=== PATIENT | female | born 1945 | race Caucasian/White ===

== ENCOUNTER 2022-05-14 15:52 | Outpatient (CLI) | payer MEDICARE, SELFPAY | END 2022-05-14 15:53 | disposition home or self-care (01) | LOC: LKVREF 05-16 12:05 | PROVIDERS: PCP Family Medicine; Visit Provider Emergency Medicine | DX: N39.0 Urinary tract infection, site not specified (principal); R30.0 Dysuria | CPT/HCPCS: 87086 ==

== ENCOUNTER 2022-05-22 10:05 | Outpatient (CLI) | payer BC, SELFPAY | END 2022-05-22 10:06 | disposition home or self-care (01) | LOC: LKVREF 10:06 | PROVIDERS: PCP Family Medicine; Visit Provider Emergency Medicine | DX: N39.0 Urinary tract infection, site not specified (principal) | CPT/HCPCS: 87086 ==

== ENCOUNTER 2022-07-02 06:23 | Emergency (ER) | payer MEDICARE, SELFPAY ==
[2022-07-02 06:27] VITALS: BP 156/97; PULSE 69; RESP 16; TEMP 36.3; O2SAT 99; BMI 34.8
--- NOTE | 2022-07-02 06:59 | CRLHL7_ITS ---
For Patients: As a result of the Century Cures Act, medical imaging exams and procedure reports are released immediately into your electronic medical record. You may view this report before your referring provider. If you have questions, please contact your health care provider. INDICATION: Fall, hit head. COMPARISON: CT head 01/03/2018. TECHNIQUE: CT of the head without IV contrast. Coronal and sagittal reconstructions. FINDINGS: No intracranial hemorrhage, mass effect, or evidence of acute infarct. No midline shift. No abnormal extra-axial fluid collections. Mild generalized cerebral and cerebellar volume loss. Normal caliber ventricular system. Stable old lacunar infarcts in the high right frontoparietal white matter. There is a stable tiny soft tissue nodule in the lateral aspect of the left orbit which is likely benign given stability (series 3, image 6). Orbits and extraocular muscles are otherwise symmetric. The paranasal sinuses and mastoid air cells are clear. No acute fracture identified. Mild left periorbital soft tissue swelling. Multiple stable small scalp lesions. IMPRESSION: : 1. No acute intracranial findings. 2. Mild left periorbital soft tissue swelling. Please note that all CT scans at this facility use dose modulation, iterative reconstruction, and/or weight-based dosing when appropriate to reduce radiation dose to as low as reasonably achievable. Dictated by Beatriz Canela MD @ 07/02/2022 8:04:22 AM (Electronically Signed)
--- NOTE | 2022-07-02 07:06 | ED_ITS ---
HPI - General Adult General Date Seen: 07/02/22 Chief complaint: Fall/Minor Trauma Stated complaint: Fall/hit head Time Seen by Provider: 07/02/22 06:39 Source: patient and family Mode of arrival: ambulatory Limitations: no limitations History of Present Illness HPI narrative: Patient is a 77-year-old female who was at the [place] airport with her planning to take a flight to [facility]. When she got out of the car she caught her toe on a crack in the sidewalk and fell forward hitting her for head on the pavement. Her glasses broke. There was a cut to her forehead that was controlled with ice and pressure. She had an immediate headache and they decided to leave the airport and drive to the emergency department. She did not lose consciousness. She has some chronic neck pain that is no worse since falling. She also landed on her right knee which is now little sore. She was ambulatory on the scene and in our parking lot. She denies other injury. She denies chest pains or shortness of breath. She denies any neurologic difficulty. She has not been sleepy. She has not vomited. Related Data Home Medications Medication Instructions Recorded Confirmed albuterol sulfate 90 mcg/actuation 2 puff inhalation Q4-6H PRN 05/14/22 07/02/22 aerosol inhaler (ProAir HFA) alprazolam 1 mg tablet 1 mg PO TID PRN 05/14/22 07/02/22 fluoxetine 20 mg capsule 20 mg PO QDAY 05/14/22 07/02/22 multivitamin 1 tab PO QDAY 05/14/22 07/02/22 omeprazole 20 mg capsule,delayed 20 mg PO QDAY 05/14/22 07/02/22 release triamterene 37.5 1 tab PO QDAY 05/14/22 07/02/22 mg-hydrochlorothiazide 25 mg tablet Previous Rx's Medication Instructions Recorded cephalexin 500 mg capsule 500 mg PO BID cellulitis #14 caps 06/21/22 hydrocodone 5 mg-acetaminophen 325 1 tab PO Q6H PRN pain #10 tabs 07/02/22 mg tablet Allergies Allergy/AdvReac Type Severity Reaction Status Date / Time shellfish derived Allergy Severe Anaphylaxis Verified 07/02/22 06:30 Sulfa (Sulfonamide Allergy Intermediate Rash Verified 07/02/22 06:30 Antibiotics) oxycodone AdvReac Severe Nightmare Verified 07/02/22 06:30 Review of Systems Status of ROS: Reports: 10 or more systems reviewed and unremarkable except as noted in History and below [facility] Medical History (Updated 07/02/22 @ 07:26 by Ramon Vee MD) Urinary tract infection Social History Smoking Status: Never smoker How often do you have a drink containing alcohol: 4 or more times a week How many standard drinks containing alcohol do you have on a typical day: 1 or 2 AUDIT-C Alcohol total score: 4 Non-prescribed substance use: denies use Exam Narrative: Exam Narrative: Vitals noted. HEENT: She has some swelling and bruising above her left eye. No bony step- off. There is a small laceration that is bleeding mildly. This is closed with Dermabond. Conjunctiva clear. PERRLA. EOMI. Tympanic membranes are pearly white bilaterally. No postauricular ecchymosis or hemotympanum. Posterior pharynx is clear without erythema or exudate. Neck is supple without adenopathy, thyromegaly, carotid bruit. She has some chronic crepitus with range of motion that is unchanged. Lungs: Clear to auscultation in all leal. No wheezes, rales, rhonchi. Heart: Regular rate and rhythm without murmur. Abdomen: Soft and nontender. No guarding, rigidity, rebound. Bowel sounds are normal. No palpable masses. Extremities: No cyanosis or edema. Good distal pulses. She has a bruised area of the proximal medial right lower leg. 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 Skin: No abnormalities noted of the exposed skin. Neurologic: Awake, alert, fully oriented. Neurologic exam is nonfocal. Const: Vital Signs, click to edit/add: Vital Signs - 24 hr 07/02/22 06:27 07/02/22 07:38 Temperature 97.3 F L Pulse Rate [Left P ulse Oximeter] 69 66 Respiratory Rate 16 18 Blood Pressure [Ri ght Upper Arm] 156/97 H 124/78 Pulse Oximetry 99 96 Oxygen Delivery Me thod Room Air Room Air Course Course Hospital Course: Patient seen and examined. I used Dermabond to close the small laceration of her left eyebrow and forehead. She tolerated this well and was hemostatic. She underwent a CT of her head without contrast which was unremarkable. She felt well other a headache and was comfortable with discharge. Vital Signs Vital signs: Initial Vital Signs Temperature 97.3 F L 07/02/22 06:27 Temperature Source Temporal Artery Scan 07/02/22 06:27 Pulse Rate 69 07/02/22 06:27 Respiratory Rate 16 07/02/22 06:27 Blood Pressure 156/97 H 07/02/22 06:27 Blood Pressure Mean 116 07/02/22 06:27 Blood Pressure Position Sitting 07/02/22 06:27 Pulse Oximetry 99 07/02/22 06:27 Oxygen Delivery Method 07/02/22 06:27 Vital Signs Temperature 97.3 F L 07/02/22 06:27 Pulse Rate 69 07/02/22 06:27 Respiratory Rate 16 07/02/22 06:27 Blood Pressure 156/97 H 07/02/22 06:27 Pulse Oximetry 99 07/02/22 06:27 Oxygen Delivery Method 07/02/22 06:27 Temperature 97.3 F L 07/02/22 06:27 Pulse Rate 66 07/02/22 07:38 Respiratory Rate 18 07/02/22 07:38 Blood Pressure 124/78 07/02/22 07:38 Pulse Oximetry 96 07/02/22 07:38 Oxygen Delivery Method 07/02/22 07:38 Discharge Plan Discharge Clinical Impression: Closed head injury, Laceration of eyebrow and forehead Patient Disposition: Home, Self-Care Condition: Improved Additional Instructions: Rest, ice, Tylenol for pain. [place] for refractory pain. The glue will come off on its own over the next week. Return to the emergency department for severe headache, vomiting, neurologic deficit. Activity Level: No Restrictions Discharge Diet: Regular Prescriptions: New hydrocodone-acetaminophen 5-325 mg tablet 1 tab PO Q6H PRN (Reason: pain) Qty: 10 0RF No Action triamterene-hydrochlorothiazid 37.5-25 mg tablet 1 tab PO QDAY fluoxetine 20 mg capsule 20 mg PO QDAY alprazolam 1 mg tablet 1 mg PO TID PRN albuterol sulfate [ProAir HFA] 90 mcg/actuation HFA aerosol inhaler 2 puff inhalation Q4-6H PRN omeprazole 20 mg capsule,delayed release(DR/EC) 20 mg PO QDAY multivitamin Tablet 1 tab PO QDAY cephalexin 500 mg capsule 500 mg PO BID Qty: 14 0RF Rx Instructions: Take one pill twice daily by mouth with food for 7 days Follow Up/Referrals: Amadeo Kern MD [Primary Care Provider] - Stand Alone Forms: [employer] Info Instructions
[2022-07-02 07:38] VITALS: BP 124/78; PULSE 66; RESP 18; O2SAT 96
[2022-07-02] MEDS: TETANUS/DIPHTH/PERTUSSIS 0.5 ML SYRINGE IM (08:13)
== END 2022-07-02 08:33 | disposition home or self-care (01) ==
PROVIDERS: Emergency Provider Family Medicine; PCP Family Medicine
DX: S09.90XA Unspecified injury of head, initial encounter (principal); S01.112A Laceration without foreign body of left eyelid and periocular area, initial encounter; W01.0XXA Fall on same level from slipping, tripping and stumbling without subsequent striking against object, initial encounter
CPT/HCPCS: 12011; 70450; 90471; 90715; 99282; 99283

== ENCOUNTER 2023-03-17 12:02 | Outpatient (CLI) | payer MEDICARE, SELFPAY | END 2023-03-17 12:03 | disposition home or self-care (01) | LOC: NFLDREF 03-18 05:35 | PROVIDERS: PCP Family Medicine; Referring Provider Family Medicine; Visit Provider Nurse Practitioner Family | DX: N39.0 Urinary tract infection, site not specified (principal); L03.90 Cellulitis, unspecified | CPT/HCPCS: 87086; 87186 ==

== ENCOUNTER 2025-04-04 15:29 | Emergency (ER) | payer MEDICARE, SELFPAY ==
--- OUTSIDE RECORDS SUMMARY | 2025-03-08 14:30 | XMS_ITS | Encounter Summary ---
Author Organization [facility] Address [address] [place] [address] Care Team Providers Care Cooking Casing And Drying Supervisor Name Role Phone Janice Corrigan M.D. Primary Care Pro vider Encounter Details Date Type Department Care Team (Latest Contact Info) Description 03/08/2025 2:30 PM CDT Virtual Visit Department of Cardiovascular Medicine in [place], [place] [address] [place] [phone] Pola Green M.D. [address] [place] [phone] Irma Dee RJeovany [address] [place] [phone] Chronic Thromboembolic Pulmonary Hypertension (HCC) Social History Tobacco Use Types Packs/Day Years Used Date Smoking Tobacco: Never Passive Smoke Exposure: Never Smokeless Tobacco: Never Alcohol Use Standard Drinks/Week Comments Yes 5 (1 standard drink = 0.6 oz pur e alcohol) [facility] Utilities Answer Date Recorded In the past 12 months has th e electric, gas, oil, or water company threatened to shut off services in your home? No 02/13/2025 Humiliation, Afraid, Rape, and Kick questionnair e Answer Date Recorded Within the last year, have y ou been afraid of your partner or ex-partner? No 01/23/2025 Within the last year, have y ou been humiliated or emotionally abused in other ways by your partner or ex-partner? No Within the last year, have y ou been kicked, hit, slapped, or otherwise physically hurt by your partner or ex-partner? No 01/23/2025 Within the last year, have y ou been raped or forced to have any kind of sexual activity by your partner or ex-partner? No 01/23/2025 Hunger Vital Sign Answer Date Recorded Within the past 12 months, y ou worried that your food would run out before you got the money to buy more. Never true 02/14/20 25 Within the past 12 months, t he food you bought just didn't last and you didn't have money to get more. Never true 02/13/2025 PRAPARE - Transportation Answer Date Re corded In the past 12 months, has l ack of transportation kept you from medical appointments or from getting medications? No 05/2025 In the past 12 months, has l ack of transportation kept you from meetings, work, or from getting things needed for daily living? No 02/13/2025 Depression Answer Date Recor ded PHQ-9 Total Score (max 27) 7 01/23 Housing Stability Answer Date Recorded What is your living situation today? [facility] have [facility] place to live 02/13/2025 Education Answer Date Recorded What is the highest level of school you have completed or the highest degree you have received? 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 - 03/08/2025 2:30 PM CDT [employer] education completed. Enrollment form mailed to her for signature. documented in this encounter Plan of Treatment Upcoming Encounters Date Type Department Care Team (Latest Contact Info) Description 04/11/2025 11:30 AM CDT Appointment Department of Laboratory Medicine in [address] [phone] Janice Corrigan M.D. [address] [place] [phone] 04/11/2025 1:40 PM CDT Office Visit Department of Family Medicine, [facility], in [address] [phone] Janice Corrigan M.D. [address] [place] [phone] 06/01/2025 11:30 AM CDT Clinical Communication Virtual Review in [place], [place] 200 [place] [phone] 06/07/2025 9:00 AM CDT Appointment Department of Laboratory Medicine and Pathology, [facility], in [address] [phone] Shani Sanchez M.D. [address] [place] [phone] 06/07/2025 9:20 AM CDT Ancillary Procedure Department of Cardiovascular Medicine in [place], [place] [address] [place] [phone] Shani Sanchez M.D. [address] [place] [phone] 06/07/2025 2:00 PM CDT Appointment Department of Cardiac Rehabilitation in [place], [place] [address] [place] [phone] Shani Sanchez M.D. [address] [place] [phone] 06/07/2025 3:00 PM CDT Office Visit Department of Cardiovascular Medicine in [place], [place] [address] [place] [phone] Shani Sanchez M.D. [address] [place] [phone] documented as of this encounter Goals Goal Patient Goal Type Associated Problems Recent Progress Patient-Stated? Author Limit the amount of fluids you drink as directed by your provider Diet On track( 12:53 PM CDT) No Irma Dee, R.N. Note: Less than 64 ounces daily Eat less salt Diet On track( 12:53 PM CDT) No Irma Dee, R.N. Note: Sodium intake less than 2000 mg daily Medication adherence Drug Use On track( 12:42 PM CDT) No Irma Dee, R.N. Note: Order medications to avoid running out Report symptoms and side effects during the titration phase of Adempas documented as of this encounter Visit Diagnoses Diagnosis Chronic Thromboembolic Pulmonary Hypertension (HCC) documented in this encounter Additional Health Concerns Assessment Noted Time PHQ-9 Depression Total Score: 7 01/24/20 25 9:07 AM CDT documented as of this encounter Care Teams Cooking Casing And Drying Supervisor Relationship Specialty Start Date End Date Janice Corrigan M.D. [address] [place] [phone] PCP - General Family Medicine 12/13/20 [facility] 10/29/23 [facility] Passenger Coach Driver Optometry 10/29/23 documented as of this encounter
--- OUTSIDE RECORDS SUMMARY | 2025-04-04 15:32 | XMS_ITS | Clinical Summary ---
Author Organization [email or web address] Address [address] [place] [phone] Care Team Providers Care Cpc Coder Name Role Phone Gogo Peters MD Primary Care Provider Un available Allergies Active Allergy Reactions Criticality Noted Date Comments Sulfa (Sulfonamide Antibiotics) Rash 02/2003 Medications triamterene-hydr ochlorothiazide, 37.5-25 mg, (MAXZIDE-25) 37.5-25 mg tablet Take 1 Tablet by mouth once daily. 2 Active omeprazole (PRILOSEC-OTC) 20 mg tablet Take 20 mg by mouth. Active multivitamin (MVI) tablet Take 1 Tablet by mouth every morning. Active fluticasone (50 mcg per actuation) nasal solution (FLONASE) INSTILL 2 sprays into each nostril daily 3 Active ALPRAZolam (XANAX) 1 mg tablet Take 0.5-1 tablets (0.5-1 mg total) by mouth at bedtime. 3 Active FLUoxetine (PROZAC) 20 mg capsule Take 1 capsule (20 mg total) by mouth every morning. 3 Active albuterol HFA (PRO-AIR; VENTOLIN; PROVENTIL) 90 mcg/actuation inhalerIndicatio ns:Cough, unspecified type Inhale 1-2 Puffs by mouth every 4 hours if needed for Shortness Of Breath or Wheezing (cough). 1 Each 3 Active methylPREDNISolo ne (Medrol, [place],) 4 mg tabletIndication s:Cough, unspecified type Take by mouth as instructed per packaging. 21 Tablet 3 Active azithromycin (ZITHROMAX) 250 mg tabletIndication s:Cough, unspecified type Take 500 mg (2 tabs) by mouth on day 1, then 250 mg (1 tab) daily for days 2-5. 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 s/p lumpectomy, radiation and adjuvant tamoxifen x 5 years Immunizations Immunization Administration Dates Next Due Influenza Virus, Unspecified 01/02/2020( Deferred: Patient Refused),06/21/2012 Influenza, High-dose Inactivated 08/18/2017,07/08,06/27/2014 Influenza, High-dose Quadriv alent Inactivated 06/19/2022,06/04/2021 Influenza, IIV3 (Age 6-35 mos) 06/15/2012,2008 Influenza, IIV4 01/02/2020 Pneumococcal Poly,23-Valent (Pneumovax) 03/31/2018,09/07/2006 Pneumococcal conj 13-Valent (Prevnar 13) 06/27/2014 Tdap 07/02/2022,09/16/2011 Zoster (Shingrix-RZV, recombinant) 01/20/2019,,10/23/2018 Social History Tobacco Use Types Packs/Day Years Used Date Smoking Tobacco: Never Smokeless Tobacco: Never Tobacco Cessation:Counseling Given: Not Answered Alcohol Use Standard Drinks/Week Comments Yes 0 (1 standard drink = 0.6 oz pur e alcohol) one drink 2 ounces daily Social Connections Answer Date Recorded Frequency of Communication with Friends and Fami ly Not on file 11/06/2023 Financial Resource Strain Answer Date R ecorded Difficulty of Paying Living Expenses 3 10/29/2022 Difficulty of Paying Living Expenses Not on file 10/29/2022 Food Insecurity Answer Date Recorded Worried About Running Out of Food in the Last Ye ar 1 10/29/2022 Transportation Needs Answer Date Record ed Lack of Transportation (Medical) 1 10/29/2022 Housing Stability Answer Date Recorded Unable to Pay for Housing in the Last Year 2 10/29/2022 Comments No Sex and Gender Information Value Date Recorded Sex Assigned at Not on file 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 Gender Identity Not on file Sexual Orientation Not on file Obstetrics History Last Filed Vital Signs Vital Sign Reading Time Taken Comments Blood Pressure 118/80 10/29/2022 4:32 PM SOLAR SYSTEMS DESIGNER Pulse 120 10/29/2022 4:32 PM SOLAR SYSTEMS DESIGNER Temperature 37.1 C (98.7 F) 10/29/2022 4:32 PM SOLAR SYSTEMS DESIGNER Respiratory Rate - - Oxygen Saturation 96% 10/29/2022 4:32 PM SOLAR SYSTEMS DESIGNER Inhaled Oxygen Concentration - - Weight 97.1 kg (214 lb) 10/29/2022 4:32 PM SOLAR SYSTEMS DESIGNER Height - - Body Mass Index - - Plan of Treatment Health Maintenance Due Date Last Done Comments Depression screening for age 12+ 1956 BMI (ht and wt on same day) for age 18+ 1962 DEXA/DXA scan for age 65+ 2009 Medicare Wellness for age 65+ 2009 RSV vaccine for adults or (1 - 1-dose 75+ series) 2019 COVID-19 vaccine series ( season) 2024 06/19/2022, 06/04/2021, 11/17/2020, Additional history exists Influenza Vaccine (#1) 2025 , 08/18/2017, 07/22/2016, Additional history exists Tetanus booster 07/02/2032 07/02/2022, 09/16/2011 Pneumococcal series for age 50+ Completed 03/31/2018, 06/27/2014, 09/07/2006 Zoster (shingles) series for age 50+ Completed 01/20/2019, 01/11/2019, 10/23/2018 Hepatitis B series for 19+ Aged Out N o longer eligible based on patient's age to complete this topic Insurance BLUE CROSS MEDICARE ADVANTAGE MR Care Teams Cpc Coder Relationship Specialty Start Date End Date Gogo Peters MD PCP - General 04/14/07
[2025-04-04 15:36] VITALS: BP 136/90; PULSE 74; RESP 20; TEMP 36.3; O2SAT 95; BMI 37.3
--- NOTE | 2025-04-04 16:02 | CRLHL7_ITS ---
For Patients: As a result of the Cures Act, medical imaging exams and procedure reports are released immediately into your electronic medical record. You may view this report before your referring provider. If you have questions, please contact your health care provider. INDICATION: Shortness of breath. TECHNIQUE: Chest 2 views. COMPARISON: 11/06/2022. FINDINGS: Lungs and pleural spaces: No consolidation. No pleural effusion. No pneumothorax. Cardiovasculature and mediastinum: Prominent left hilum is unchanged. Tortuous aorta. Borderline cardiomegaly. IMPRESSION: No acute cardiopulmonary abnormality. Dictated by Dhruv Sanchez MD @ 04/04/2025 4:45:36 PM (Electronically Signed)
--- NOTE | 2025-04-04 16:04 | ED.ARRPALP ---
HPI - Arrhythmia/Palpitations General Chief Complaint: Arrhythmia/Palpitations Stated Complaint: Palpatations, weak Time Seen by Provider: 04/04/25 15:34 History of Present Illness HPI narrative: This 79-year-old female comes in reporting some palpitations and generalized weakness and fatigue. She states that these symptoms have been present and somewhat worsening over the last week. She also reports a 6 lb weight gain in the last week. She does have a history of right-sided heart failure with pulmonary hypertension. She is taking diuretics and states that the 10 mg dose of torsemide was too much for her as she was incontinent of urine. She is currently taking 5 mg daily. She does not report any chest pain. She states that she has strength to get up and ambulate but does become short of breath with exertion. She does not report any orthopnea or chest pain. Related Data Home Medications ?Medication ?Instructions ?Recorded ?Confirmed albuterol sulfate 90 mcg/actuation 2 puff inhalation Q4-6H PRN 05/14/22 10/07/24 aerosol inhaler (ProAir HFA) alprazolam 1 mg tablet 1 mg PO TID PRN 05/14/22 10/07/24 fluoxetine 20 mg capsule 20 mg PO QDAY 05/14/22 10/07/24 multivitamin 1 tab PO QDAY 05/14/22 10/07/24 omeprazole 20 mg capsule,delayed 20 mg PO QDAY 05/14/22 10/07/24 release apixaban 5 mg tablet (Eliquis) 5 mg PO BID 10/07/24 10/07/24 lisinopril 5 mg tablet mg PO DAILY 10/07/24 10/07/24 metoprolol succinate 25 mg 25 mg PO 10/07/24 10/07/24 tablet,extended release 24 hr rosuvastatin 5 mg tablet 5 mg PO QPM 10/07/24 10/07/24 spironolactone 25 mg tablet mg PO DAILY 10/07/24 10/07/24 torsemide 10 mg tablet 10 mg PO DAILY 10/07/24 10/07/24 Previous Rx's ?Medication ?Instructions ?Recorded fluticasone propionate 110 1 puff inhalation BID #12 grams 11/06/22 mcg/actuation HFA aerosol inhaler (Flovent HFA) albuterol sulfate 90 mcg/actuation 2 puff inhalation Q6H PRN 07/26/24 aerosol inhaler shortness of breath or wheezing #6.7 grams Allergies Allergy/AdvReac Type Severity Reaction Status Date / Time shellfish derived Allergy Severe Anaphylaxis Verified 04/04/25 15:44 Sulfa (Sulfonamide Allergy Intermediate Rash Verified 04/04/25 15:44 Antibiotics) oxycodone AdvReac Severe Nightmare Verified 04/04/25 15:44 Review of Systems Status of ROS: Reports: 10 or more systems reviewed and unremarkable except as noted in History and below Narrative: Constitutional: No fevers, no weight gain or loss. Eyes: No discharge. No vision changes. HENT: No congestion, no sore throat, no ear pain. Cardiovascular: No chest pain. She reports palpitations. Respiratory: No wheezes. Occasional chronic cough. Gastrointestinal: No abdominal pain, no vomiting, no diarrhea. Genitourinary: No dysuria, no hematuria. Musculoskeletal: Normal range of motion. Skin: No rashes, no pruritis. Neurological: No dizziness, weakness, sensory change, speech change. Endo/Heme/Allergies: No bruising or bleeding. No polydipsia. Pysch: no suicidality, no anxiety, no insomnia. All other systems reviewed and are negative. [facility] Medical History (Updated 04/04/25 @ 17:18 by Amadeo Napier MD) Cellulitis ?L03.90 - Cellulitis, unspecified (ICD-10) Intermittent asthma ?J45.20 - Mild intermittent asthma, uncomplicated (ICD-10) Cough ?R05.9 - Cough, unspecified (ICD-10) Urinary tract infection ?N39.0 - Urinary tract infection, site not specified (ICD-10) Social History Smoking Status: Never smoker How often do you have a drink containing alcohol: 4 or more times a week How many standard drinks containing alcohol do you have on a typical day: 1 or 2 AUDIT-C Alcohol total score: 4 Non-prescribed substance use: denies use Exam Narrative: Exam Narrative: Constitutional: Well-developed, well-nourished, no acute distress. HEENT: Normocephalic, atraumatic. Neck: Normal range of motion. Nontender. Supple. Heart: Regular. No murmurs. Normal rate. Intact distal pulses. Lungs: Clear to auscultation. No chest discomfort. No wheezes, rhonchi, or rales. Abdomen: Normal bowel sounds. Nontender. No rebound tenderness. Genitalia: Deferred. Back: No midline tenderness. Normal range of motion. Extremities: Normal range of motion. No injury. Skin: Intact. No rash. Warm. No erythema or pallor. Neurologic: No altered sensation. No weakness. Alert and oriented. Psychiatric: No suicidality. No anxiety or depression. No insomnia. Nursing notes and vitals signs are reviewed. Const: Vital Signs, click to edit/add: Vital Signs - 24 hr 04/04/25 15:36 04/04/25 17:11 Temperature 97.4 F L 97.6 F Pulse Rate [Pulse Oximeter] 74 71 Respiratory Rate 20 18 Blood Pressure [Ri ght Upper Arm] 136/90 H 146/88 H Pulse Oximetry 95 96 Oxygen Delivery Me thod Room Air Room Air Course Vital Signs Vital signs: Initial Vital Signs Temperature 97.4 F L 04/04/25 15:36 Temperature Source Temporal Artery Scan 04/04/25 15:36 Pulse Rate 74 04/04/25 15:36 Respiratory Rate 20 04/04/25 15:36 Blood Pressure 136/90 H 04/04/25 15:36 Blood Pressure Mean 105 04/04/25 15:36 Blood Pressure Position Sitting 04/04/25 15:36 Pulse Oximetry 95 04/04/25 15:36 Oxygen Delivery Method Room Air 04/04/25 15:36 Vital Signs Temperature 97.4 F L 04/04/25 15:36 Pulse Rate 74 04/04/25 15:36 Respiratory Rate 20 04/04/25 15:36 Blood Pressure 136/90 H 04/04/25 15:36 Pulse Oximetry 95 04/04/25 15:36 Oxygen Delivery Method Room Air 04/04/25 15:36 Temperature 97.6 F 04/04/25 17:11 Pulse Rate 71 04/04/25 17:11 Respiratory Rate 18 04/04/25 17:11 Blood Pressure 146/88 H 04/04/25 17:11 Pulse Oximetry 96 04/04/25 17:11 Oxygen Delivery Method Room Air 04/04/25 17:11 Medications Administered Medications: Discontinued Medications Generic Name Dose Route Start Last Admin Trade Name Freq PRN Reason Stop Dose Admin Magnesium Hydroxide 30 ml 04/04/25 17:02 04/04/25 17:09 Magnesium Hydroxide 30 Ml Oral.Susp PO 04/04/25 17:03 30 ml ONCE ONE Administration MDM - Arrhythmia/Palpitations MDM Narrative Medical decision making narrative: This patient comes in reporting some occasions of palpitations. Her EKG looks normal but I did note on the monitor that she had some occasional PACs. EKG and monitor findings otherwise looked normal. I did acquire labs which returned with normal results except she does have a little bit decrease in her magnesium level at 1.3. The patient did receive an oral dose of 30 mg of magnesium. Her B type nitrate peptide returns a bit elevated at 1900. I do not have a comparison value for her. Troponin returns normal at 0.01. Chest x-ray shows no acute findings. These results are reassuring to the patient. She does take 5 mg of torsemide in the morning but has been retaining fluid in the last week or so. She states that she did not tolerate the 10 mg dose because of urinary incontinence. She states that she could not get to the bathroom on time when she took that larger dose. It seems that 5 mg is not enough diuresis to manage her condition so I recommended taking 5 mg in the morning and another 5 mg at about noon for several days until her weight has normalized. She is agreeable to this plan. Lab Data Labs: Lab Results 04/04/25 04/04/25 Range/Units 16:03 16:09 WBC 5.81 (4.50-11.00) K/uL RBC 4.13 (4.00-5.20) m/uL Hgb 12.3 (12.0-16.0) gm/dL Hct 37.6 (33.0-51.0) % MCV 91 (80-100) fL MCH 30 (26-34) pg MCHC 33 (32-36) gm/dL RDW Coeff of Teresa 13.9 (11.5-15.5) % Plt Count 232 (140-440) K/uL Neut % (Auto) 62.0 (42.0-72.0) % Lymph % (Auto) 24.6 (20-44) % [place] % (Auto) 10.8 (0.0-11.0) % Eos % (Auto) 1.0 (0.0-7.0) % Baso % (Auto) 0.7 (0.0-3.0) % Neut # (Auto) 3.60 (1.7-7.0) K/uL Lymph # (Auto) 1.43 (0.90-2.90) K/uL [place] # (Auto) 0.60 (0.00-0.90) K/UL Eos # (Auto) 0.06 (0.00-0.50) K/uL Baso # (Auto) 0.04 (0.00-0.30) K/uL Abs Immat Gran (auto) 0.05 (0.00-0.30) K/uL Imm/Tot Granulo (auto) 0.9 % Sodium 138 (135-149) mmol/L Potassium 3.9 (3.6-5.1) mmol/L Chloride 102 (96-114) mmol/L Carbon Dioxide 29 (20-32) mmol/L Anion Gap 7 (7-15) mEq/L BUN 21 (7-30) mg/dL Creatinine 0.9 (0.5-1.5) mg/dL Estimated Creat Clear 38.75 Estimated GFR 65 ml/min Glucose 106 (60-115) mg/dL Calcium 9.4 (8.4-10.6) mg/dL Magnesium 1.3 L (1.5-2.6) mg/dL Troponin I < 0.01 (0.01-0.04) ng/mL NT-Pro-B Natriuret Pep 1900 H (See Note) pg/mL POC Troponin I 0.01 (0.01-0.04) ng/ml Imaging Data Chest x-ray: Radiologist's impression: No acute cardiopulmonary abnormality. ECG Data Attestation: I personally reviewed and interpreted this ECG as follows: Interpretation: Normal sinus rhythm. Rate is 75 beats per minute. There are no ST or T-wave abnormalities. Discharge Plan Discharge Clinical Impression: Congestive heart failure Patient Disposition: Home, Self-Care Condition: Stable Additional Instructions: Take an extra 5 mg of torsemide daily for several days until your weight gain is returned back to your previous weight. Follow up with MD for ongoing management or return if worsening symptoms occur. Prescriptions: No Action fluoxetine 20 mg capsule 20 mg PO QDAY alprazolam 1 mg tablet 1 mg PO TID PRN albuterol sulfate [ProAir HFA] 90 mcg/actuation HFA aerosol inhaler 2 puff inhalation Q4-6H PRN omeprazole 20 mg capsule,delayed release(DR/EC) 20 mg PO QDAY multivitamin Tablet 1 tab PO QDAY fluticasone propionate [Flovent HFA] 110 mcg/actuation HFA aerosol inhaler 1 puff inhalation BID Qty: 12 0RF albuterol sulfate 90 mcg/actuation HFA aerosol inhaler 2 puff inhalation Q6H PRN (Reason: shortness of breath or wheezing) Qty: 6.7 0RF lisinopril 5 mg tablet PO DAILY spironolactone 25 mg tablet PO DAILY rosuvastatin 5 mg tablet 5 mg PO QPM metoprolol succinate 25 mg tablet extended release 24 hr 25 mg PO Eliquis 5 mg tablet 5 mg PO BID torsemide 10 mg tablet 10 mg PO DAILY Follow Up/Referrals: Amadeo Kern MD [Staff Physician, Family Practice] Stand Alone Forms: [facility] Info Instructions
--- OUTSIDE RECORDS SUMMARY | 2025-04-04 16:09 | XMS_ITS | Clinical Summary ---
Author Organization [facility] Address [address] [place] [address] Care Team Providers Care Postbed Stitcher Name Role Phone Janice Corrigan M.D. Primary Care Pro vider Source Comments Patient records contain information from all sites at [facility]. For routine questions regarding patient records, call [phone] during business hours, M-F 8:00 AM - 5:00 PM Central Time. Record requests for emergency care only can be directed to [phone] at any time.[facility] Allergies Active Allergy Reactions Criticality Noted Date Comments Riociguat Rash 03/08/2025 Oxycodone Other (see comments),Hallucinatio ns 09/28/2013 Nightmares Shellfish Derived Rash,GI intolerance 6 Violent emesis and headache Sulfa (Sulfonamide Antibiotics) Rash 11/10/2002 Adhesive Rash 06/27/2020 Medications * This document contains information received from the source organization and may not represent a complete record from that organization. multivitamin tablet Take 1 tablet by mouth every morning. Active omeprazole (PriLOSEC OTC) 20 mg EC tablet Take 20 mg by mouth every morning. Active acetaminophen (TYLENOL) 325 mg tablet Take 2 tablets (650 mg total) by mouth every 6 (six) hours as needed for pain. 03/02/20 23 Active FLUoxetine (PROzac) 20 mg capsule Take 1 capsule (20 mg total) by mouth every morning. 90 capsule 3 06/16/20 24 Active fluticasone propionate (Flonase) 50 mcg/actuation nasal spray Administer 2 sprays into each nostril daily as needed for rhinitis or allergies. 16 g 6 06/20/20 24 Active spironolactone (Aldactone) 25 mg tablet Take 1 tablet (25 mg total) by mouth daily. 30 tablet 11 06/20/20 Active albuterol 90 mcg/actuation inhaler inhale 2 puffs every 6 hours As Needed for shortness of breath or wheezing* 07/26/20 Active apixaban (Eliquis) 5 mg tablet Take 1 tablet (5 mg total) by mouth 2 (two) times a day. 90 tablet 1 08/02/20 Active DME OxygenIndications :Chronic Thromboembolic Pulmonary Hypertension (HCC) DME Order - for details see Order Report 1 each 08/18/20 Active magnesium chloride (Slow-Mag) 71.[address] tablet Take 1 tablet (71.5 mg total) by mouth daily before morning meal. Do not crush or chew. 30 tablet 11 09/23/19 25 Active rosuvastatin (Crestor) 5 mg tabletIndications :Hyperlipidemia Type IIB Take 1 tablet (5 mg total) by mouth at bedtime. 90 tablet 3 02/04/20 25 026 Active metoprolol succinate (Toprol XL) 25 mg 24 hr tabletIndications :Hypertension Essential Primary,Tachycard ia Atrial Paroxysmal (HCC),Palpitation s Take 1 tablet (25 mg total) by mouth daily. Do not crush or chew. 90 tablet 3 02/04/20 25 026 Active ALPRAZolam (Xanax) 1 mg tabletIndications :Anxiety Generalized Disorder Take 1 tablet (1 mg total) by mouth at bedtime as needed for anxiety. 30 tablet 2 02/04/20 25 Active lisinopriL 10 mg tablet Take 1 tablet (10 mg total) by mouth daily. 90 tablet 3 02/04/20 25 Active torsemide (Demadex) 10 mg tablet Take 1 tablet (10 mg total) by mouth daily. 90 tablet 3 03/01/20 25 026 Active macitentan (Opsumit) 10 mg tablet Take 1 tablet (10 mg total) by mouth daily. 30 tablet 03/22/20 Active riociguat (Adempas) 1 mg tabletIndications :chronic thromboembolic pulmonary hypertension Take 1 tablet (1 mg total) by mouth every 8 (eight) hours Indications: chronic pulmonary hypertension after pulmonary embolism. If systolic BP > 95 mmHg and there are no signs/symptoms of hypotension, up titrate by 0.5 mg three times daily at intervals no sooner than 2 weeks to the highest tolerated dosage up to a maximum of 2.5 mg three times daily. If at any time, the patient has symptoms of hypotension, decrease the dosage by 0.5 mg three times daily. The established individual dose should be maintained. 90 tablet 12/31/19 Discontinu ed(Discont inued by another clinician) riociguat (Adempas) 1.5 mg tablet Take 1 tablet (1.5 mg total) by mouth every 8 (eight) hours. If systolic BP > 95 mmHg and there are no signs/symptoms of hypotension, up titrate by 0.5 mg three times daily at intervals no sooner than 2 weeks to the highest tolerated dosage up to a maximum of 2.5 mg three times daily. If at any time, the patient has symptoms of hypotension, decrease the dosage by 0.5 mg three times daily. The established individual dose should be maintained. 90 tablet 12/31/19 025 Discontinu ed(Discont inued by another clinician) riociguat (Adempas) 2 mg tabletIndications :chronic thromboembolic pulmonary hypertension Take 1 tablet (2 mg total) by mouth every 8 (eight) hours Indications: chronic pulmonary hypertension after pulmonary embolism. If systolic BP > 95 mmHg and there are no signs/symptoms of hypotension, up titrate by 0.5 mg three times daily at intervals no sooner than 2 weeks to the highest tolerated dosage up to a maximum of 2.5 mg three times daily. If at any time, the patient has symptoms of hypotension, decrease the dosage by 0.5 mg three times daily. The established individual dose should be maintained. 90 tablet 12/31/19 25 025 Discontinu ed(Discont inued by another clinician) riociguat (Adempas) 2.5 mg tabletIndications :chronic thromboembolic pulmonary hypertension Take 1 tablet (2.5 mg total) by mouth every 8 (eight) hours Indications: chronic pulmonary hypertension after pulmonary embolism. If systolic BP > 95 mmHg and there are no signs/symptoms of hypotension, up titrate by 0.5 mg three times daily at intervals no sooner than 2 weeks to the highest tolerated dosage up to a maximum of 2.5 mg three times daily. If at any time, the patient has symptoms of hypotension, decrease the dosage by 0.5 mg three times daily. The established individual dose should be maintained. 90 tablet 11 12/31/19 25 025 Discontinu ed(Discont inued by another clinician) Active Problems Patient Care Coordination No te Formatting of this note migh t be different from the original. Interdisciplinary plan of care: Improve pulmonary hypertension self-management through education including use of a sick day plan when appropriate Goals related to diet: Follow a low sodium diet 2000 mg daily and Limit fluid intake of 64 ounces or less per day, Goals related to medication: Increase awareness of symptoms and/or side effects related to medication titration and Manage prescription refills to avoid running out of medications, Goals related to monitoring: Weigh daily , and Reducing Risks: Regular follow up with your provider, Contact RN personal care assistant for sudden weight gain or worsening symptoms/side effects, and Contact EMS for emergent conditions Current functional limitations: Class II: symptoms with ordinary physical activity and limitations with physical activity Assistive devices/DME used: None Current Community Resources: [facility] Problem Noted Date Diagnosed Date Embolus Pulmonary Thrombus Chronic 09/01/2024 Weakness General 07/08/2024 Hypertension Pulmonary 06/20/2024 Palpitations 02/25/2024 Tachycardia Atrial Paroxysmal 12/30/2023 Supraventricular Tachycardia, Unspecified 2023 Fatigue 11/01/2023 Transient Ischemic Attack 03/25/2023 Seroma Infected Postoperative Subsequent 023 Hypertension Essential Primary 03/23/2023 Cellulitis 03/02/2023 Cellulitis Abdomen 03/01/2023 Anemia Posthemorrhagic Acute (Blood Loss Anemia) 07/26/2021 Insomnia 07/26/2021 Anxiety Generalized Disorder 07/26/2021 Palpitations 11/03/2020 Hypomagnesemia 10/30/2020 Herniorrhaphy Ventral Status Post 10/26/2020 Hernia Ventral 10/25/2020 Gastroesophageal Reflux Disease NOS 11/09/2018 Overview (11/09/2018): EGD December 2017, normal esophagus, cystic fundic gland polyps and duodenal bulb polyps with benign pathology Pain Back Thoracic 07/22/2018 Osteoarthritis 07/22/2018 Pain Low Back Unspecified 07/22/2018 Rotator Cuff Disorder Right 03/11/2018 Impingement Syndrome Shoulder Right 03/11/2018 Primary Osteoarthritis Acromioclavicular Right 0 03/11/2018 Morbid Obesity Body Mass Ind ex >= 35 with Comorbid Condition 03/11/2018 Asthma NOS 09/22/2017 Hyperlipidemia Type IIB 12/01/2016 Asthma Extrinsic Mild 10/18/2015 Cancer Breast Personal History 09/07/2006 Overview (11/09/2018): T1, N0, M0 Left invasive ductal carcinoma, ER+/PA+, HER2-, 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 s/p lumpectomy, radiation and adjuvant tamoxifen x 5 years Osteopenia Resolved Problems Problem Noted Date Diagnosed Date Resolved Date Hypokalemia 03/25/2023 03/26/2023 Infection Wound Postoperative Initial 03/01/2023 04/26/2024 Excess Fluid Volume 07/26/2021 07/28/20 21 Failure Renal Acute (Acute Kidney Injury) 11/04/2020 07/03/2021 Hypophosphatemia 10/30/2020 10/31/2020 Fistula Enterocutaneous 10/30/202006/08 Wound Abdominal Wall Open Initial 10/25/2020 07/03/2021 Abscess Intra Abdominal 07/03/202006/08 Blurred Vision 11/09/2018 11/09/2018 Bursitis Trochanteric Right 03/11/2018 03/11/2018 Encounters Date Type Department Care Team Description 04/04/2025 Nurse Triage Department of Family Medicine, [facility], in [address] [phone] Sabina Gao R.N. Heart Problem 04/04/2025 Clinical Communication Department of Cardiovascular Medicine in [place], [place] [address] [place] [address] Property AssistantJosé M.D. Echo Move Up Request 03/29/2025 Clinical Communication Department of Cardiovascular Medicine in [place], [place] [address] [place] [address] Shani Sanchez M.D. 03/24/2025 Clinical Communication Division of Pulmonary Medicine in [place], [place] [address] [place] [phone] Pola Green M.D. Rx Denial (Opsumit 10 mg tablet) 03/22/2025 Patient Outreach Department of Cardiovascular Medicine in [place], [place] [address] [place] [phone] Irma Dee R.N. Care Coordination 03/08/2025 2:30 PM CDT Virtual Visit Department of Cardiovascular Medicine in [place], [place] [address] [place] [phone] Pola Green M.D. Bray, Diane C, R.N. Chronic Thromboembolic Pulmonary Hypertension (HCC) 03/07/2025 Clinical Communication Department of Cardiovascular Medicine in [place], [place] [address] [place] [phone] Shani Sanchez M.D. Symptoms with Adempas and rash 03/02/2025 Clinical Communication Department of Cardiovascular Medicine in [place], [place] [address] [place] [phone] Shani Sanchez M.D. Med Question (Adempas REMS) 02/27/2025 Refill Department of Family Medicine, [facility], in [address] [phone] Janice Corrigan M.D. Med Refill 02/27/2025 Clinical Communication Department of Cardiovascular Medicine in [place], [place] [address] [place] [phone] Property AssistantJosé M.D. Appt Request (Summer follow up.) 02/21/2025 Patient Outreach Department of Cardiovascular Medicine in [place], [place] [address] [place] [address] Irma Dee R.N. Care Coordination 02/16/2025 11:30 AM CDT Telemedicine [facility] in [place], [place] [address] [place] [phone] Ella Yo M.D. Chronic Thromboembolic Pulmonary Hypertension (HCC) (Primary Dx) 02/14/2025 9:15 AM CDT Clinical Communication Virtual Review in [place], [place] [address] [place] [address] Pre-visit Intake 02/10/2025 10:05 AM CDT - 02/10/2025 11:59 PM CDT Hospital Encounter Department of Laboratory Medicine in [address] [phone] Shani Sanchez M.D. Hypertension Pulmonary (HCC) Discharge Disposition: Home or Self Care 02/10/2025 Results Follow-Up Department of Cardiovascular Medicine in [place], [place] [address] [place] [phone] Hedy Marie RAshlynNAshlyn Basic Metabolic Panel 02/09/2025 Patient Outreach Department of Cardiovascular Medicine in [address] [phone] Irma Dee R.N. Care Coordination 02/06/2025 Patient Outreach Department of Cardiovascular Medicine in [address] [phone] Irma Dee R.N. Care Coordination 01/23/2025 9:30 AM CDT Office Visit Department of Family Medicine, [facility], in [address] [phone] Janice Corrigan M.D. Jandro, Vanessa R RAshlynNAshlyn Annual Medicare Examination Return (Primary Dx) Discharge Disposition: Home or Self Care 01/23/2025 9:20 AM CDT Office Visit Department of Family Medicine, [facility], in [address] [phone] Janice Corrigan M.D. Hypertension Pulmonary (HCC) (Primary Dx); Tachycardia Atrial Paroxysmal (HCC); Palpitations; Hypertension Essential Primary; Pain Shoulder Right; Hyperlipidemia Type IIB; Anxiety Generalized Disorder; Seroma Infected Postoperative Subsequent; Pain Abdominal Chronic; Hypomagnesemia; Pain Low Back Unspecified Discharge Disposition: Home or Self Care 01/23/2025 8:54 AM CDT - 01/23/2025 11:59 PM CDT Hospital Encounter Department of Radiology in [address] [phone] Augustus Rueda M.D. Arthroplasty Total Knee Replacement Status Post Bilateral Discharge Disposition: Home or Self Care 01/19/2025 Patient Outreach Department of Cardiovascular Medicine in [place], [place] [address] [place] [address] Irma Dee, R.N. Care Coordination 01/17/2025 Patient Outreach Department of Cardiovascular Medicine in [place], [place] [address] [place] [phone] Irma Dee, R.NAshlyn Care Coordination 01/11/2025 Documentation [facility] in [place], [place] [address] [place] [address] Shani Sanchez M.D. 01/10/2025 Clinical Communication Department of Orthopedic Surgery in [place], [place] [address] [place] [phone] Juvenal Stevenson M.D. 01/09/2025 Patient Outreach Department of Cardiovascular Medicine in [place], [place] [address] [place] [phone] Irma Dee, R.N. 01/05/2025 Clinical Communication Department of Cardiovascular Medicine in [place], [place] [address] [place] [phone] Shani Sanchez M.D. Rx Denial (Adempas 0.5 MG tablet); RX Approved 01/05/2025 Clinical Communication Department of Cardiovascular Medicine in [place], [place] [address] [place] [phone] Shani Sanchez M.D. Rx Denial (Adempas 0.5MG tablet) 01/03/2025 Orders Only [facility] [place] [address] [place] [phone] Jenny Barrera from Last 3 Months Immunizations Immunization Administration Dates Next Due Influenza Split 06/21/2012 Influenza high dose QV(65 ye ars or older) (PF) 10/29/2023,06/19/2022,06/04/2021 Influenza, Unspecified 06/21/2012 PCV13 06/27/2014 PPSV23 03/31/2018,09/07/2006 RZV (SHINGRIX) 01/20/2019,10/23/2018 Tdap 07/02/2022,09/16/2011 influenza trivalent high dos e (HD)(PF) 09/08/2024,08/18/2017,07/22/2016,2013 influenza trivalent vaccine (6 months and older)(PF) 06/15/2012,08/03/2009 influenza vaccine quad (FLUZONE/FLUARIX) (6 months and older)(PF) 01/02/2020 Family History Medical History Relation Name Comments Coronary artery disease Brother 1 brothers Kidney cancer Brother 1 brothers 2 brothers Coronary artery disease Brother 2 Kidney cancer Brother 2 Coronary artery disease Brother 3 Kidney cancer Brother 3 2 brothers Breast cancer Father auntsLois Diabetes Father auntsLois Heart disease Father auntsLois Hypertension Father auntsLois Ovarian cancer Father auntsLois Ovarian cancer Father's Brother grand daughter Ovarian cancer Granddaughter Felishaubaldo Galeana Arthritis Mother parents Clotting disorder Mother parents Glaucoma Mother parents Heart disease Mother parents Hypertension Mother parents Diabetes Sister 1 Lymphoma Sister 1 Ovarian cancer Sister 1 Pancreatitis Sister 1 Diabetes Sister 2 Lymphoma Sister 3 Lizzie Transient ischemic attack Sister 3 Lizzie Stroke Sister 4 sister Macular degeneration Neg Hx Psoriasis Neg Hx daughter, and s everal other cousins Relation Name Status Comments Brother 1 brothers Alive Brother 2 Brother 3 Alive Father auntsLois Alive Father's Brother grand daughter Alive Granddaughter Felisha Galeana Alive Mother parents Sister 1 Alive Sister 2 Sister 3 Lizzie Alive Sister 4 sister Alive Social History Tobacco Use Types Packs/Day Years Used Date Smoking Tobacco: Never Passive Smoke Exposure: Never Smokeless Tobacco: Never Tobacco Cessation:Counseling Given: Not Answered Alcohol Use Standard Drinks/Week Comments Yes 5 (1 standard drink = 0.6 oz pur e alcohol) [facility] Utilities Answer Date Recorded In the past [...] your living situation today? I have a [facility] place to live 02/13/2025 Education Answer Date Recorded What is the highest level of school you have completed or the highest degree you have received? 12th grade 02/07/2020 Comments No Sex and Gender Information Value Date Recorded Sex Assigned at Female 06/18/2021 8:10 PM CDT Legal Sex Female 7:46 AM SCOUT Gender Identity Female 01/29/2018 9:08 AM CDT Sexual Orientation Straight 01/29/2018 9: 08 AM CDT Occupation Industry Job Start Date Job End Date Retired Not on file Not on file Not on file Last Filed Vital Signs Vital Sign Reading Time Taken Comments Blood Pressure 116/75 01/23/2025 9:13 AM CDT Pulse 62 01/23/2025 9:13 AM CDT Temperature 35.9 C (96.6 F) 01/23/2025 9:13 AM CDT Respiratory Rate 18 01/23/2025 9:13 AM CDT Oxygen Saturation 96% 01/23/2025 9:13 AM CDT Inhaled Oxygen Concentration - - Weight 96 kg (211 lb 10.3 oz) 01/23/2025 9:13 AM CDT Height 163.9 cm (5' 4.53) 01/23/2025 9:13 AM CD T Body Mass Index 35.74 01/23/2025 9:13 AM CDT Plan of Treatment Upcoming Encounters Date Type Department Care Team (Latest Contact Info) Description 04/11/2025 11:30 AM CDT Appointment Department of Laboratory Medicine in [address] [phone] Janice Corrigan M.D. [address] [place] [phone] 04/11/2025 1:40 PM CDT Office Visit Department of Family Medicine, [facility], in [address] [phone] Janice Corrigan M.D. [address] [place] [phone] 06/01/2025 11:30 AM CDT Clinical Communication Virtual Review in [address] [phone] 06/07/2025 9:00 AM CDT Appointment Department of Laboratory Medicine and Pathology, [facility], in [place], [place] [address] [place] [address] Shani Sanchez M.D. [address] [place] [phone] 06/07/2025 9:20 AM CDT Ancillary Procedure Department of Cardiovascular Medicine in [place], [place] [address] [place] [address] Shani Sanchez M.D. [address] [place] [phone] 06/07/2025 2:00 PM CDT Appointment Department of Cardiac Rehabilitation in [place], [place] [address] [place] [address] Shani Sanchez M.D. [address] [place] [phone] 06/07/2025 3:00 PM CDT Office Visit Department of Cardiovascular Medicine in [place], [place] [address] [place] [address] Shani Sanchez M.D. [address] [place] [phone] Health Maintenance Due Date Last Done Comments RSV vaccine - (32-36 weeks) or 60+ years (1 - 1-dose 75+ series) 2019 COVID-19 Vaccine ( season) 2025 09/08/2024, 06/19/2022, 06/04/2021, Additional history exists Influenza Vaccine (#1) 2025 , 10/29/2023, 06/19/2022, Additional history exists Office Visit for Blood Pressure Check / Re-check 01/23/2026 01/23/2025 Visit: Chronic Disease, age 18+ 01/23/2026 01/23/2025 Visit: Medicare Annual Wellness 01/24/2026 01/23/2025, 06/13/2022 Creatinine Level (Kidney Function Test) 02/10/2026 02/10/2025, 12/30/2024, 11/21/2024, Additional history exists Fasting Glucose for Diabetes Screening 02/10/2026 02/10/2025, 12/30/2024, 11/21/2024, Additional history exists Potassium Level 02/10/2026 02/10/2025, 12/07, 11/21/2024, Additional history exists Sodium Level 02/10/2026 02/10/2025, 12/07, 11/21/2024, Additional history exists DTaP,Tdap,and Td Vaccines (3 - Td or Tdap) 07/02/2032 07/02/2022, 09/16/2011 Pneumococcal vaccine (50+ years) Completed 03/31/2018, 06/27/2014, 09/07/2006 Zoster Vaccines Completed 01/20/2019, 10/23/2018 Mammogram Discontinued 01/19/2024, 05/0 09/2022, 01/08/2022, Additional history exists Depression Screening (Annual PHQ-2) Completed 01/23/2025, 01/23/2025 Fall Risk Screen (Annual) Completed 01/23/2025 IPV Vaccines Aged Out No longer eligi ble based on patient's age to complete this topic Goals Goal Patient Goal Type Associated Problems [...] effects during the titration phase of Adempas Medical Devices Implanted Type Area Fuel Cell Technician Device Identifier Shelf Expiration Date Model / Serial / Lot Mold Fem Spcr Cruc Sac Xpd - [id number] Implanted:Qty: 1 on 12/31/2018 by Dahlia Owen M.D. at [facility] Bone Cement [employer] 07/07/2021 CX01B / / [id number] Cmnt Bn Smp 20gm - [id number] Implanted:Qty: 1 on 03/24/2023 by Jenny Boyle M.D. at [facility] Bone Cement N/A: Abdomen [place] 6188-1-0 Description:Implanted 20 ant ibiotic beads Biopsy Clip 08/21/14 Implanted:08/07 (Quantity not on file) Clip Left: Breast Description:Body Location - Breast L. Device Status Text - ClipOther. Sigma Post Stab.W Lug Fem Sz 3 Lt - [place] [id number] Implanted:Qty: 1 on 11/09/2009 Knee Implant Other/Legacy - See Implant Description [employer] Description:Device Manufactu rer - [employer]. Body Location - Other. Left. Device Status Text - [id number] [id number]. J J Patella Rev Round 35m - [place] [id number] Implanted:Qty: 1 on 11/09/2009 Knee Implant Other/Legacy - See Implant Description [employer] Description:Device Manufactu rer - [employer]. Body Location - Other. Left. Device Status Text - [id number] [id number]. Depuy-Insert Stabilized Sz 2.5 12.5mm - [place] [id number] Implanted:Qty: 1 on 11/09/2009 Knee Implant Other/Legacy - See Implant Description [employer] Description:Device Manufactu rer - [employer]. Body Location - Other. Left. Device Status Text - [id number] [id number]. Depuy-Tib Tray Mod Cement Cocr Sz2.5 - [place] [id number] Implanted:Qty: 1 on 11/09/2009 Knee Implant Other/Legacy - See Implant Description [employer] Description:Device Manufactu rer - [employer]. Body Location - Other. Left. Device Status Text - [id number] [id number]. Depuy-Tib Tray Mod Cement Cocr Sz3 - [place] [id number] Implanted:Qty: 1 on 01/30/2010 Knee Implant Other/Legacy - See Implant Description [employer] Description:Device Manufactu rer - J [employer]. Body Location - Other. Right. Device Status Text - [id number] [id number]. Sigma Post Stab.W Lug Fem Sz 3 Rt - [place] [id number] Implanted:Qty: 1 on 01/30/2010 Knee Implant Other/Legacy - See Implant Description [employer] Description:Device Manufactu rer - J [employer]. Body Location - Other. Right. Device Status Text - [id number] [id number]. J J Sig Patella Oval 35 - [place] [id number] Implanted:Qty: 1 on 01/30/2010 Knee Implant Other/Legacy - See Implant Description [employer] Description:Device Manufactu rer - J [employer]. Body Location - Other. Right. Device Status Text - [id number] [id number]. Depuy-Insert Stabilized Sz 3 12.5mm - [place] [id number] Implanted:Qty: 1 on 01/30/2010 Knee Implant Other/Legacy - See Implant Description [employer] Description:Device Manufactu rer - [employer]. Body Location - Other. Right. Device Status Text - [id number] [id number]. Conversions - Default Historical Implant Device Implanted:08/07 (Quantity not on file) Knee Implant Description:Device Status Te xt - Knee Imp. Conversions - Default Historical Implant Device - [place] [id number] Implanted:09/07 (Quantity not on file) Knee Implant Description:Device Status Te xt - KNEE [id number]. Conversions - Default Historical Implant Device Implanted:09/07 (Quantity not on file) Knee Implant Description:Device Status Te xt - Knee Imp. Conversions - Default Historical Implant Device - [place] [id number] Implanted:09/07 (Quantity not on file) Knee Implant Description:Device Status Te xt - KNEE [id number]. Mesh Or Patch-09/07/1969 Implanted:09/1969 (Quantity not on file) Mesh or Patch Umbilical Physiomesh Composite [id number]) - [place] [id number] Implanted:Qty: 1 on 12/02/2012 Mesh or Patch Other/Legacy - See Implant Description [employer] Description:Device Manufactu rer - [employer]. Body Location - ?. Not Applicable. Device Status Text - [id number]. Physiomesh Composite [id number]([id number]) - [place] [id number] Implanted:Qty: 1 on 09/28/2013 Mesh or Patch Abdomen [employer] Description:Device Manufactu rer - Ethicon. Body Location - Abdominal. Device Status Text - [id number]. Mesh Prolene 12 X 12 Pm-L - [place] Rosario [id number] Implanted:Qty: 1 on 06/26/2014 Mesh or Patch Ethicon Description:Device Manufactu rer - Ethicon. Device Status Text - MESHPATCH-2448. Zepeda Adhn Seprafilm 3x5 - [id number] Implanted:Qty: 1 on 10/25/2020 by Analy Cisneros M.D. at [facility] Mesh or Patch Lazaro 02/08/2023 [id number] / / [id number] [facility] Ollie Polyprp 20.3x25 - [id number] Implanted:Qty: 1 on 07/24/2021 by Jenny Boyle M.D. at [facility] Mesh or Patch Abdomen C.R.Bard 01/02/2023 [id number] / / [id number] Cement Bone Large - Del Rosario [id number] Implanted:Qty: 2 on 11/09/2009 [facility] Other Clover Description:Device Manufactu rer - Minturn Henry.. Device Status Text - MISCOTHER-2840. Cement Bone Large - Del Rosario [id number] Implanted:Qty: 2 on 01/30/2010 [facility] Other Clover Description:Device Manufactu rer - Clover Henry.. Device Status Text - MISCOTHER-2840. Sling Miniarc Bladder - Del Rosario [id number] Implanted:Qty: 1 on 12/08/2008 Urogenital Implant Other/Legacy - See Implant Description [employer] Description:Device Manufactu rer - Utrip Systems. Body Location - Other. Not Applicable. Device Status Text - [id number]. Non-metallic per MagResource 12/24/18 [facility] [id number] Scp-Sling Fgs - Del Rosario [id number] Implanted:Qty: 1 on 12/08/2008 Urogenital Implant Other/Legacy - See Implant Description [employer] Description:Device Manufactu rer - [employer] Mapplas [employer]. Body Location - Other. Not Applicable. Device Status Text - [id number]. Kit Sealant Tisseel 10ml Frozen - Del Rosario [id number] Implanted:Qty: 1 on 12/02/2012 [facility]ascular Other Other/Legacy - See Implant Description Lazaro Description:Device Manufactu rer - Lazaro. Body Location - ?. Not Applicable. Device Status Text - [id number]. Kit Sealant Tisseel 10ml Frozen - Del Rosario [id number] Implanted:Qty: 1 on 09/28/2013 [facility]ascular Other Abdomen Lazaro Description:Device Manufactu rer - Lazaro. Body Location - Abdominal. Device Status Text - [id number]. Explanted Type Area Fuel Cell Technician Device Identifier Shelf Expiration Date Model / Serial / Lot [facility] - [id number] Implanted:Qty: 1 on 07/24/2021 by Jenny Boyle M.D. at [facility] Explanted:Qty: 1 on 02/04/2023 by Jenny Boyle M.D. at [facility] Bone Cement Abdomen Clover [id number] 6188-- 1 / / [facility] 20 - [id number] Implanted:Qty: 1 on 02/04/2023 by Jenny Boyle M.D. at [facility] Explanted:Qty: 1 on 03/24/2023 by Jenny Boyle M.D. at [facility] Bone Cement Left: Abdomen Minturn [id number] 6188- 1 / / Description:Explanted 15 ant ibiotic beads Procedures Procedure Name Priority Date/Time Associated Diagnosis Comments BASIC METABOLIC PANEL, S/P Routine 02/10/2025 10:10 AM CDT Hypertension Pulmonary (HCC) DX KNEE BILATERAL STANDING 3 VIEWS RAD - Routine (most inpatients and all outpatients) 01/23/2025 10:38 AM CDT Arthroplasty Total Knee Replacement Status Post Bilateral BI BREAST SCREENING BILATERAL WITH TOMOSYNTHESIS RAD - Routine (most inpatients and all outpatients) 01/19/2024 10:02 AM CDT Screening Mammogram Average Risk Patient from Last 3 Months or Most Recently Relevant to Health Maintenance Results * Basic Metabolic Panel (02/10/2025 10:10 AM CDT) Potassium, P 3.9 3.6 - 5.2 mmol/L 02/10/2025 10:31 AM CDT CNFL Sodium, P 139 135 - 145 mmol/L 02/10/2025 10:31 AM CDT CNFL Chloride, P 101 98 - 107 mmol/L 02/10/2025 10:31 AM CDT CNFL Bicarbonate, P 25 22 - 29 mmol/L 02/10/2025 10:31 AM CDT CNFL Anion Gap, P 13 7 - 15 02/10/2025 10:31 AM CDT CNFL BUN (Blood Urea Nitrogen), P 17 6 - 21 mg/dL 02/10/2025 10:31 AM CDT CNFL Creatinine 0.85 0.59 - 1.04 mg/dL 02/10/2025 10:31 AM CDT CNFL Estimated GFR (eGFR) 69 >=60 mL/min/BSA 02/10/2025 10:31 AM CDT CNFL Comment: Estimated GFR calculated using the 2020 CKD_EPI creatinine equation. Calcium, Total, P 9.1 8.8 - 10.2 mg/dL 02/10/2025 10:31 AM CDT CNFL Glucose, P 115 70 - 140 mg/dL 02/10/2025 10:31 AM CDT CNFL Blood (Blood, Venous) 02/10/2025 10:10 AM CDT 02/10/2025 10:11 AM CDT us Shani Sanchez M.D. LAB BLOOD ADD-ON Final Resu lt [facility] [id number] [address], [facility] CNFL [facility] in [address] [address] * DX Knee Bilateral Standing 3 Views (01/23/2025 10:38 AM CDT) Anatomical Region Laterality Modality Lower Extremity, Knee, Muscu loskeletal RST LOS, Musculoskeletal ARZ LOS, Muskuloskeletal FLA LOS Bilateral Digit al Radiography Impressions 01/23/2025 10:51 AM CDT Correlation with several prior studies, most recently 03/08/2020. --Bilateral tricompartmental knee arthroplasties present in stable position/alignment from prior imaging. Negative for periprosthetic fracture. Bone/prosthesis interfaces appear within normal limits as visualized. No significant joint effusion or synovitis demonstrated. Narrative 01/23/2025 10:51 AM CDT EXAM: DX KNEE BILATERAL STANDING 3 VIEWS Procedure Note Ramon Ramirez M.D. - 01/23/2025 EXAM: DX KNEE BILATERAL STANDING 3 VIEWS IMPRESSION: Correlation with several prior studies, most recently 03/08/2020. --Bilateral tricompartmental knee arthroplasties present in stableposition/alignment from prior imaging. Negative for periprostheticfracture. Bone/prosthesis interfaces appear within normal limits asvisualized. No significant joint effusion or synovitis demonstrated. [facility]ICE[facility] Final Result * BI Breast Screening Bilateral with Tomosynthesis (01/19/2024 10:02 AM CDT) Anatomical Region Laterality Modality Breast, Breast Imaging RST L OS, Breast Imaging ARZ LOS, Breast Imaging FLA LOS Bilateral Mammography Impressions 01/19/2024 2:55 PM CDT Negative. RECOMMENDATION: Annual Screening Mammogram ASSESSMENT: BI-RADS: 1: Negative. Narrative 01/19/2024 2:55 PM CDT EXAM: BI BREAST SCREENING BILATERAL WITH TOMOSYNTHESIS Current study was evaluated with a Computer Aided Detection (CAD) system. INDICATION: Screening mammogram. COMPARISON: Prior exam(s) were available and reviewed for comparison. DENSITY: c. The breast(s) are heterogeneously dense, which may obscure small masses. FINDINGS: No mammographic findings of malignancy. Left breast posttreatment changes. Procedure Note Jonelle Mckee D.O. - 01/19/2024 EXAM: BI BREAST SCREENING BILATERAL WITH TOMOSYNTHESIS Current study was evaluated with a Computer Aided Detection (CAD) system. INDICATION: Screening mammogram. COMPARISON: Prior exam(s) were available and reviewed for comparison. DENSITY: c. The breast(s) are heterogeneously dense, which may obscuresmall masses. FINDINGS: No mammographic findings of malignancy. Left breastposttreatment changes. IMPRESSION: Negative. RECOMMENDATION: Annual Screening Mammogram ASSESSMENT: BI-RADS: 1: Negative. Janice Gao M.D. IMG BI PROCEDURES Final Result from Last 3 Months or Most Recently Relevant to Health Maintenance Insurance [facility] Advance Directives For more information, please contact: [phone] * Full Code (Latest Code Status on File) Date Activated Date Inactivated Comments 12/30/2023 8:22 AM 01/02/2024 4:31 PM Question Answer Comments Full Code: Discussed * Full Code Date Activated Date Inactivated Comments 07/24/2021 9:27 PM 07/28/2021 3:33 PM Question Answer Comments Full Code: Not Discussed Due to: Patient not available * Full Code Date Activated Date Inactivated Comments 10/25/2020 9:28 PM 11/04/2020 5:53 PM Question Answer Comments Full Code: Discussed Care Teams Postbed Stitcher Relationship Specialty Start Date End Date Janice Corrigan M.D. [id number] [phone] PCP - General Family Medicine 12/13/20 [facility] 10/29/23 [facility] Integration Technician Optometry 10/29/23
--- OUTSIDE RECORDS SUMMARY | 2025-04-04 16:09 | XMS_ITS | Encounter Summary ---
Author Organization [facility] Address [address] [place] [address] Care Team Providers Care Bar Turner Name Role Phone Janice Corrigan M.D. Primary Care Pro vider Encounter Details Date Type Department Care Team (Late st Contact Info) Description 11/21/2002 Historical Ophthalmology RST OPH Bhavna Angel M.D. [address] [place] [phone] Social History Tobacco Use Types Packs/Day Years Used Date Smoking Tobacco: Never Assessed Comments Unknown Sex and Gender Information Value Date Recorded Sex Assigned at Female 06/18/2021 8:10 PM CDT Legal Sex Female 7:46 AM BALE OPENER Gender Identity Female 01/29/2018 9:08 AM CDT Sexual Orientation Straight 01/29/2018 9: 08 AM CDT documented as of this encounter Progress Notes * Bhavna Angel M.D. - 11/21/2002 12:00 AM CST Eye General CHIEF COMPLAINT red eye OD HISTORY OF PRESENT ILLNESS Patient has noticed OD becomes red with bumps on the white part, fluctuating for past 6 weeks. Episodes range from daily 1 week ago, to 2-3 times per week prior to that. Denies ocular discomfort orvision changes. States right side of face becomes numb and eye feels swollen prior to eye becoming red. Saw local MD 2 weeks ago and was given antibiotic drops, but no improvement. Headaches are unchanged, I've had them all my life. DIAGNOSIS #1 Transient Right Eye Injection no injection on exam today because of segmental distribution - ? episcleritis symptoms resolve more quickly than typically seen in subconjunctival hemorrhage observe #2 Headaches no ophthalmologic etiology CDM Reports - EYEGEN Id: [id number] Status: Fnl documented in this encounter Plan of Treatment Upcoming Encounters Date Type Department Care Team (Latest Contact Info) Description 04/11/2025 11:30 AM CDT Appointment Department of Laboratory Medicine in [address] [phone] Janice Corrigan M.D. [address] [place] [phone] 04/11/2025 1:40 PM CDT Office Visit Department of Family Medicine, [facility], in [address] [phone] [place] Janice Gao M.D. [address] [place] [phone] 06/01/2025 11:30 AM CDT Clinical Communication Virtual Review in [address] [phone] 06/07/2025 9:00 AM CDT Appointment Department of Laboratory Medicine and Pathology, [facility], in [address] [phone] Shani Sanchez M.D. [address] [place] [phone] 06/07/2025 9:20 AM CDT Ancillary Procedure Department of Cardiovascular Medicine in [address] [place] [address] Shani Sanchez M.D. [address] [place] [address] 06/07/2025 2:00 PM CDT Appointment Department of Cardiac Rehabilitation in [place], [place] [address] [place] [address] Shani Sanchez M.D. [address] [place] [phone] 06/07/2025 3:00 PM CDT Office Visit Department of Cardiovascular Medicine in [place], [place] [address] [place] [address] Shani Sanchez M.D. [address] [place] [phone] documented as of this encounter Visit Diagnoses Not on filedocumented in this encounter Additional Health Concerns Infection Onset Date Last Indicated Resolved Time COVID19 Pending 09/26/2020 09/26/2020 09/26/2020 1 2:25 PM BALE OPENER COVID19 Pending 10/22/2020 10/22/2020 10/22/2020 9 :37 PM BALE OPENER COVID19 Pending 07/21/2021 07/21/2021 07/22/2021 1 :35 AM BALE OPENER COVID19 03/23/2024 03/23/2024 04/12/2024 5:38 AM CDT COVID19 Pending 06/25/2024 06/25/2024 06/25/2024 2 :20 PM CDT COVID19 Pending 10/14/2024 10/14/2024 10/14/2024 4 :50 PM BALE OPENER documented as of this encounter Care Teams Bar Turner Relationship Specialty Start Date End Date Janice Corrigan M.D. [address] [place] [phone] PCP - General Family Medicine 12/13/20 [facility] 10/29/23 [facility] Winding Machine Operator Optometry 10/29/23 documented as of this encounter
--- OUTSIDE RECORDS SUMMARY | 2025-04-04 16:09 | XMS_ITS | Encounter Summary ---
Author Organization [facility] Address [address] [place] [address] Care Team Providers Care Yarn Texturing Machine Operator Name Role Phone Janice Corrigan M.D. Primary Care Pro vider Encounter Details Date Type Department Care Team (Late st Contact Info) Description 12/03/2017 Historical Ophthalmology RST OPH Moraima Alcala O.D. Social History Tobacco Use Types Packs/Day Years Used Date Smoking Tobacco: Never Smokeless Tobacco: Never Comments No Sex and Gender Information Value Date Recorded Sex Assigned at Female 06/18/2021 8:10 PM CDT Legal Sex Female 7:46 AM STUDENT AFFAIRS VICE PRESIDENT Gender Identity Female 01/29/2018 9:08 AM CDT Sexual Orientation Straight 01/29/2018 9: 08 AM CDT documented as of this encounter Progress Notes * Moraima Ravi O.D. - 12/03/2017 11:03 AM CDT Eye General CHIEF COMPLAINT General exam HISTORY OF PRESENT ILLNESS Last DOUG 1.5 years ago. Blurred vision; both eyes; x 1 year; on and off; symptoms occur primarily when reading and night driving - mild . Patient denies pain, flashes or diplopia. Floaters alone; both eyes; x many years; on and off. IMPRESSION / REPORT / PLAN #1 Cataracts, both, not visually significant Plan: Monitor, Rx optional change #2 Glaucoma suspect based on family history only Plan: monitor, RTC 1 year DIAGNOSIS #1 Cataracts, both, not visually significant #2 Glaucoma suspect based on family history only CDM Reports - EYEGEN Id: [id number] Status: Fnl documented in this encounter Plan of Treatment Upcoming Encounters Date Type Department Care Team (Latest Contact Info) Description 04/11/2025 11:30 AM CDT Appointment Department of Laboratory Medicine in [address] [phone] Janice Corrigan M.D. [address] [place] [phone] 04/11/2025 1:40 PM CDT Office Visit Department of Family Medicine, [facility], in [address] [phone] Janice Corrigan M.D. [address] [place] [phone] 06/01/2025 11:30 AM CDT Clinical Communication Virtual Review in [address] [phone] 06/07/2025 9:00 AM CDT Appointment Department of Laboratory Medicine and Pathology, [facility] in [place], [place] [address] [place] [phone] Shani Sanchez M.D. [address] [place] [phone] 06/07/2025 9:20 AM CDT Ancillary Procedure Department of Cardiovascular Medicine in [address] [phone] Shani Sanchez M.D. [address] [place] [phone] 06/07/2025 2:00 PM CDT Appointment Department of Cardiac Rehabilitation in [place], [place] [address] [place] [address] Shani Sanchez M.D. [address] [place] [address] 06/07/2025 3:00 PM CDT Office Visit Department of Cardiovascular Medicine in [place], [place] [address] [place] [address] Shani Sanchez M.D. [address] [place] [address] documented as of this encounter Visit Diagnoses Not on filedocumented in this encounter Additional Health Concerns Infection Onset Date Last Indicated Resolved Time COVID19 Pending 09/26/2020 09/26/2020 09/26/2020 1 2:25 PM STUDENT AFFAIRS VICE PRESIDENT COVID19 Pending 10/22/2020 10/22/2020 10/22/2020 9 :37 PM STUDENT AFFAIRS VICE PRESIDENT COVID19 Pending 07/21/2021 07/21/2021 07/22/2021 1 :35 AM STUDENT AFFAIRS VICE PRESIDENT COVID19 03/23/2024 03/23/2024 04/12/2024 5:38 AM CDT COVID19 Pending 06/25/2024 06/25/2024 06/25/2024 2 :20 PM CDT COVID19 Pending 10/14/2024 10/14/2024 10/14/2024 4 :50 PM STUDENT AFFAIRS VICE PRESIDENT documented as of this encounter Care Teams Yarn Texturing Machine Operator Relationship Specialty Start Date End Date Janice Corrigan M.D. [phone] [phone] PCP - General Family Medicine 12/13/20 [facility] 10/29/23 [facility] Pin Attacher Optometry 10/29/23 documented as of this encounter
--- OUTSIDE RECORDS SUMMARY | 2025-04-04 16:09 | XMS_ITS | Encounter Summary ---
Author Organization [facility] Address [address] [place] [address] Care Team Providers Care Psychologist Military Personnel Name Role Phone Janice Corrigan M.D. Primary Care Pro vider Encounter Details Date Type Department Care Team (Latest Contact Info) Description 02/10/2025 Results Follow-Up Department of Cardiovascular Medicine in [place], [place] [address] [place] [address] Hedy Marie, RAshlynNAshlyn Basic Metabolic Panel Social History Tobacco Use Types Packs/Day Years Used Date Smoking Tobacco: Never Passive Smoke Exposure: Never Smokeless Tobacco: Never Alcohol Use Standard Drinks/Week Comments Yes 5 (1 standard drink = 0.6 oz pur e alcohol) [facility] Utilities Answer Date Recorded In the past 12 months has e [employer], gas, oil, or water [employer] threatened to shut off services in your [...] your living situation today? I have a [facility] place to live 02/13/2025 Education Answer Date Recorded What is the highest level of school you have completed or the highest degree you have received? 12th grade 02/07/2020 Comments No Sex and Gender Information Value Date Recorded Sex Assigned at Female 06/18/2021 8:10 PM CDT Legal Sex Female 7:46 AM CLIENT RELATIONSHIP EXECUTIVE Gender Identity Female 01/29/2018 9:08 AM CDT Sexual Orientation Straight 01/29/2018 9: 08 AM CDT Occupation Industry Job Start Date Job End Date Retired Not on file Not on file Not on file documented as of this encounter Plan of Treatment Upcoming Encounters Date Type Department Care Team (Latest Contact Info) Description 04/11/2025 11:30 AM CDT Appointment Department of Laboratory Medicine in [address] [phone] Janice Corrigan M.D. [address] [place] [phone] 04/11/2025 1:40 PM CDT Office Visit Department of Family Medicine, [facility], in [address] [phone] Janice Corrigan M.D. [address] [place] [phone] 06/01/2025 11:30 AM CDT Clinical Communication Virtual Review in [place], [place] 200 [place] [address] 06/07/2025 9:00 AM CDT Appointment Department of Laboratory Medicine and Pathology, [facility], in [address] [phone] Shani Sanchez M.D. [address] [place] [phone] 06/07/2025 9:20 AM CDT Ancillary Procedure Department of Cardiovascular Medicine in [address] [phone] Shani Sanchez M.D. [address] [place] [phone] 06/07/2025 2:00 PM CDT Appointment Department of Cardiac Rehabilitation in [address] [phone] Shani Sanchez M.D. [address] [place] [phone] 06/07/2025 3:00 PM CDT Office Visit Department of Cardiovascular Medicine in [address] [phone] Shani Sanchez M.D. [address] [place] [phone] documented as of this encounter Goals Goal Patient Goal Type Associated Problems Recent Progress Patient-Stated? Author Limit the amount of fluids you drink as directed by your provider Diet On track( 12:53 PM CDT) No Irma Dee, R.N. Note: Less than 64 ounces daily Eat less salt Diet On track( 12:53 PM CDT) No Irma Dee R.N. Note: Sodium intake less than 2000 mg daily Medication adherence Drug Use On track( 12:42 PM CDT) No Irma Dee, R.N. Note: Order medications to avoid running out Report symptoms and side effects during the titration phase of Adempas documented as of this encounter Visit Diagnoses Not on filedocumented in this encounter Additional Health Concerns Assessment Noted Time PHQ-9 Depression Total Score: 7 01/24/20 25 9:07 AM CDT documented as of this encounter Care Teams Psychologist Military Personnel Relationship Specialty Start Date End Date Janice Corrigan M.D. [address] [place] [phone] PCP - General Family Medicine 12/13/20 [facility] 10/29/23 [facility] Clinical Biochemist Optometry 10/29/23 documented as of this encounter
--- OUTSIDE RECORDS SUMMARY | 2025-04-04 16:09 | XMS_ITS | Encounter Summary ---
Author Organization [facility] Address [address] [place] [address] Care Team Providers Care Pull Worker Name Role Phone Janice Corrigan M.D. Primary Care Pro vider Reason for Visit * Reason Onset Date Comments Heart Problem 04/04/2025 Encounter Details Date Type Department Care Team (Late st Contact Info) Description 04/04/2025 Nurse Triage Department of Family Medicine, [facility], in [address] [phone] Sabina Gao, RAshlynNAshlyn [address] [place] [phone] Heart Problem Social History Tobacco Use Types Packs/Day Years Used Date Smoking Tobacco: Never Passive Smoke Exposure: Never Smokeless Tobacco: Never Alcohol Use Standard Drinks/Week Comments Yes 5 (1 standard drink = 0.6 oz pur e alcohol) [facility] Utilities Answer Date Recorded In the past 12 months has e electric, gas, oil, or water company [...] money to buy more. Never true 02/14/20 Within the past 12 months, t he [...] your living situation today? I have a [facility] place to live 02/13/2025 Education Answer Date Recorded What is the highest level of school you have completed or the highest degree you have received? 12th grade 02/07/2020 Comments No Sex and Gender Information Value Date Recorded Sex Assigned at Female 06/18/2021 8:10 PM CDT Legal Sex Female 7:46 AM COMMERCIAL CREDIT HEAD Gender Identity Female 01/29/2018 9:08 AM CDT Sexual Orientation Straight 01/29/2018 9: 08 AM CDT Occupation Industry Job Start Date Job End Date Retired Not on file Not on file Not on file documented as of this encounter Miscellaneous Notes * Telephone Encounter - Sabina Gao R.N. - 04/04/2025 2:02 PM CDT Chief Complaint / Reason for Call Patient is a 79 y.o. female calling regarding Heart Problem. Assessment Concern: Patient is having an irregular heart rate with palpitations that started last week. She has also notice worsening feet and ankle swelling (right is worse then left), short of breath, and high blood pressure readings. She has gained 6 pounds. Her blood pressures are running 168/112 and 155/96. Patient is tired with lack of energy, lightheaded, and weak. Home cares tried: No home cares tried. Calling to request: Recommendations The recommended disposition is Go to ED Now. Reason for Disposition Feeling weak or lightheaded (e.g., woozy, feeling like they might faint) Protocols used: Heart Rate and Heartbeat Plwksurda-Qsehm-LE Care Advice Heart Rate and Heartbeat Zjjzwhxtt-Cykaj-QK Nurse Sabina Shah Apr 04, 2025 02:17 PM Care Advice GO TO ED NOW: documented in this encounter Plan of Treatment Upcoming Encounters Date Type Department Care Team (Latest Contact Info) Description 04/11/2025 11:30 AM CDT Appointment Department of Laboratory Medicine in [address] [phone] [place] Janice Gao M.D. [address] [place] [phone] 04/11/2025 1:40 PM CDT Office Visit Department of Family Medicine, [facility], in [address] [phone] [place] Janice Gao M.D. [address] [place] [phone] 06/01/2025 11:30 AM CDT Clinical Communication Virtual Review in [place], [place] [address] [place] [address] 06/07/2025 9:00 AM CDT Appointment Department of Laboratory Medicine and Pathology, [facility], in [place], [place] [address] [place] [address] Shani Sanchez M.D. [address] [place] [phone] 06/07/2025 9:20 AM CDT Ancillary Procedure Department of Cardiovascular Medicine in [place], [place] [address] [place] [address] Shani Sanchez M.D. [address] [place] [phone] 06/07/2025 2:00 PM CDT Appointment Department of Cardiac Rehabilitation in [place], [place] [address] [place] [phone] Shani Sanchez M.D. [address] [place] [phone] 06/07/2025 3:00 PM CDT Office Visit Department of Cardiovascular Medicine in [place], [place] [address] [place] [address] Shani Sanchez M.D. [address] [place] [phone] documented as of this encounter Goals Goal [...] documented as of this encounter Care Teams Pull Worker Relationship Specialty Start Date End Date Janice Corrigan M.D. [address] [phone] PCP - General Family Medicine 12/13/20 [facility] 10/29/23 [facility] Chief Executive Or Managing Director Optometry 10/29/23 documented as of this encounter
--- OUTSIDE RECORDS SUMMARY | 2025-04-04 16:09 | XMS_ITS | Encounter Summary ---
Author Organization [facility] Address [address] [place] [address] Care Team Providers Care Retail Commission Sales Associate Name Role Phone Janice Corrigan M.D. Primary Care Pro vider Reason for Visit * Reason Onset Date Comments Appt Request 02/27/2025summer follow up . Encounter Details Date Type Department Care Team (Latest Contact Info) Description 02/27/2025 Clinical Communication Department of Cardiovascular Medicine in [place], [place] [address] [place] [phone] Private EyeJosé M.D. Appt Request (Summer follow up.) Social History Tobacco Use Types Packs/Day Years Used Date Smoking Tobacco: Never Passive Smoke Exposure: Never Smokeless Tobacco: Never Alcohol Use Standard Drinks/Week Comments Yes 5 (1 standard drink = 0.6 oz pur e alcohol) [facility] Utilities Answer Date Recorded In the past 12 months has e electric, gas, oil, or water [employer] threatened to shut off services in your [...] your living situation today? I have a [facility] place to live 02/13/2025 Education Answer Date Recorded What is the highest level of school you have completed or the highest degree you have received? 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 [address] [place] [phone] 04/11/2025 1:40 PM CDT Office Visit Department of Family Medicine, [facility], in [address] [phone] Janice Corrigan M.D. [address] [place] [phone] 06/01/2025 11:30 AM CDT Clinical Communication Virtual Review in [place], [place] 200 [place] [address] 06/07/2025 9:00 AM CDT Appointment Department of Laboratory Medicine and Pathology, [facility], in [place], [place] [address] [place] [phone] Shani Sanchez M.D. [address] [place] [phone] 06/07/2025 9:20 AM CDT Ancillary Procedure Department of Cardiovascular Medicine in [place], [place] [address] [place] [phone] Shani Sanchez M.D. [address] [place] [phone] 06/07/2025 2:00 PM CDT Appointment Department of Cardiac Rehabilitation in [address] [phone] Shani Sanchez M.D. [address] [place] [phone] 06/07/2025 3:00 PM CDT Office Visit Department of Cardiovascular Medicine in [address] [phone] Shani Sanchez M.D. [address] [place] [phone] documented as of this encounter Goals Goal [...] documented as of this encounter Care Teams Retail Commission Sales Associate Relationship Specialty Start Date End Date Janice Corrigan M.D. [address] [place] [phone] PCP - General Family Medicine 12/13/20 [facility] 10/29/23 [facility] Commercial Artist Lettering Optometry 10/29/23 documented as of this encounter
--- OUTSIDE RECORDS SUMMARY | 2025-04-04 16:09 | XMS_ITS | Encounter Summary ---
Author Organization [facility] Address [address] [place] [phone] Care Team Providers Care Campus Chaplain Name Role Phone Janice Corrigan M.D. Primary Care Pro vider Encounter Details Date Type Department Care Team (Late st Contact Info) Description 01/11/2025 Documentation [facility] in [place], [place] [address] [place] [phone] Shani Sanchez M.D. [address] [place] [address] Social History Tobacco Use Types Packs/Day Years Used Date Smoking Tobacco: Never Passive Smoke Exposure: Never Smokeless Tobacco: Never Alcohol Use Standard Drinks/Week Comments Yes 5 (1 standard drink = 0.6 oz pur e alcohol) [facility] Utilities Answer Date Recorded In the past 12 months has e electric, gas, oil, or water company threatened to shut off services in your home? No 01/23/2024 Humiliation, Afraid, Rape, and Kick questionnair e Answer Date Recorded Within the last year, have y ou been afraid of your partner or ex-partner? No 12/30/2023 Within the last year, have y ou been humiliated or emotionally abused in other ways by your partner or ex-partner? No Within the last year, have y ou been kicked, hit, slapped, or otherwise physically hurt by your partner or ex-partner? No 12/30/2023 Within the last year, have y ou been raped or forced to have any kind of sexual activity by your partner or ex-partner? No 12/30/2023 Hunger Vital Sign Answer Date Recorded Within the past 12 months, y ou worried that your food would run out before you got the money to buy more. Never true 01/23/20 24 Within the past 12 months, t he food you bought just didn't last and you didn't have money to get more. Never true 01/23/2024 PRAPARE - Transportation Answer Date Re corded In the past 12 months, has l ack of transportation kept you from medical appointments or from getting medications? No 01/05 In the past 12 months, has l ack of transportation kept you from meetings, work, or from getting things needed for daily living? No 01/23/2024 Housing Stability Answer Date Recorded What is your living situation today? I have a [facility] place to live 01/23/2024 Education Answer Date Recorded What is the highest level of school you have completed or the highest degree you have received? 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 [address] [place] [phone] 04/11/2025 1:40 PM CDT Office Visit Department of Family Medicine, [facility], in [address] [phone] Janice Corrigan M.D. [address] [place] [phone] 06/01/2025 11:30 AM CDT Clinical Communication Virtual Review in [place], [place] 200 [place] [phone] 06/07/2025 9:00 AM CDT Appointment Department of Laboratory Medicine and Pathology, [facility], in [address] [phone] Shani Sanchez M.D. [address] [place] [phone] 06/07/2025 9:20 AM CDT Ancillary Procedure Department of Cardiovascular Medicine in [address] [phone] Shani Sanchez M.D. [address] [place] [phone] 06/07/2025 2:00 PM CDT Appointment Department of Cardiac Rehabilitation in [address] [phone] Shani Sanchez M.D. [address] [place] [phone] 06/07/2025 3:00 PM CDT Office Visit Department of Cardiovascular Medicine in [address] [phone] Shani Sanchez M.D. [address] [place] [phone] documented as of this encounter Goals Goal [...] Diagnoses Not on filedocumented in this encounter Care Teams Campus Chaplain Relationship Specialty Start Date End Date Janice Corrigan M.D. [address] [place] [phone] PCP - General Family Medicine 12/13/20 [facility] 10/29/23 [facility] Consumer Marketing Analyst Optometry 10/29/23 documented as of this encounter
--- OUTSIDE RECORDS SUMMARY | 2025-04-04 16:09 | XMS_ITS | Encounter Summary ---
Author Organization [facility] Address [address] [place] [address] Care Team Providers Care Seed Expert Name Role Phone Janice Corrigan M.D. Primary Care Pro vider Reason for Visit * Reason Comments Med Refill Encounter Details Date Type Department Care Team (Late st Contact Info) Description 02/27/2025 Refill Department of Family Medicine, [facility], in [address] [phone] Janice Corrigan M.D. [address] [place] [phone] Med Refill Social History Tobacco Use Types Packs/Day Years Used Date Smoking Tobacco: Never Passive Smoke Exposure: Never Smokeless Tobacco: Never Alcohol Use Standard Drinks/Week Comments Yes 5 (1 standard drink = 0.6 oz pur e alcohol) [facility] Utilities Answer Date Recorded In the [...] your living situation today? I have a [facility] place to live 02/13/2025 Education Answer Date Recorded What is the highest level of school you have completed or the highest degree you have received? 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 [address] [place] [phone] 04/11/2025 1:40 PM CDT Office Visit Department of Family Medicine, [facility], in [address] [phone] Janice Corrigan M.D. [address] [place] [phone] 06/01/2025 11:30 AM CDT Clinical Communication Virtual Review in [place], [place] 200 [place] [phone] 06/07/2025 9:00 AM CDT Appointment Department of Laboratory Medicine and Pathology, [facility], in [place], [place] [address] [place] [phone] Shani Sanchez M.D. [address] [place] [phone] 06/07/2025 9:20 AM CDT Ancillary Procedure Department of Cardiovascular Medicine in [place], [place] [address] [place] [phone] Shani Sanchez M.D. [address] [place] [phone] 06/07/2025 2:00 PM CDT Appointment Department of Cardiac Rehabilitation in [place], [place] [address] [place] [phone] Shani Sanchez M.D. [address] [place] [phone] 06/07/2025 3:00 PM CDT Office Visit Department of Cardiovascular Medicine in [place], [place] [address] [place] [phone] Shani Sanchez M.D. [address] [place] [address] [place] [phone] documented as of this encounter Goals Goal [...] documented as of this encounter Care Teams Seed Expert Relationship Specialty Start Date End Date Janice Corrigan M.D. NPJulissa: [phone] [address] [phone] PCP - General Family Medicine 12/13/20 [facility] 10/29/23 [facility] [employer] Optometry 10/29/23 documented as of this encounter
--- OUTSIDE RECORDS SUMMARY | 2025-04-04 16:09 | XMS_ITS | Encounter Summary ---
Author Organization [facility] Address 200 [place] [address] Care Team Providers Care Legal Advisor Name Role Phone Janice Corrigan M.D. Primary Care Pro vider Reason for Referral * Specialty Diagnoses / Procedures Referred By Elie clayton Referred To Contact Diagnoses Chronic Thromboembolic Pulmonary Hypertension (HCC) Shani Sanchez M.D. 200 [place] [address] Phone: tel: fax: [facility] Referral ID Status Reason Start Date Expiration Date Visits Re quested Visits Authorized Reason for Visit * Reason Onset Date Comments Symptoms with Adempas and rash 03/07/2025 Encounter Details Date Type Department Care Team (Latest Contact Info) Description 03/07/2025 Clinical Communication Department of Cardiovascular Medicine in [place], [place] [address] [place] [phone] Shani Sanchez M.D. [address] [place] [phone] Symptoms with Adempas and rash Social History Tobacco Use Types Packs/Day Years Used Date Smoking Tobacco: Never Passive Smoke Exposure: Never Smokeless Tobacco: Never Alcohol Use Standard Drinks/Week Comments Yes 5 (1 standard drink = 0.6 oz pur e alcohol) [facility] Utilities Answer Date Recorded In the past [...] your living situation today? I have a [facility] place to live 02/13/2025 Education Answer Date Recorded What is the highest level of school you have completed or the highest degree you have received? 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 - 03/08/2025 9:22 AM CDT HISTORY OF PRESENT ILLNESS Dr. Sanchez has completed the Adempas [employer] Patient Enrollment and Consent Form dated 12/30/2024 and it has been submitted for scanning into [employer]. Vital Sign parameters and goals: Systolic blood pressure greater than 95 mmHg NAME OF MEDICATION TO BE TITRATED: Adempas started 02/03/2025 CURRENT REPORTED DOSE: 1 mg three times daily DOSE TITRATION SCHEDULED OR INCREASE DOSE BY: increase by 0.5 mg three times daily every 14 days TARGET DOSE: 2.5 mg three times daily or highest tolerated dose. VITAL SIGNS: Blood Pressure: 123/81 Heart Rate: 75 bpm Oxygen Saturation: 90- 95 % on room air 2 L oxygen at night Weight at start of Adempas 208 pounds Current weight 211 pounds Weight after restarting spironolactone and torsemide now improved to 211 pounds but still up about three pounds. Previous Weight 02/09/2025 217 pounds but had not been taking her diuretics. Symptoms: She increased the Adempas dose to 1 mg three times daily on 03/02/2025. She reports she developed reflux and diarrhea on 03/03. She reports feeling sick Thursday and Thursday and a little better on Thursday03/06/2025. She reports the reflux and diarrhea are gone but she developed a rash yesterday that looks, almost like blood blisters - red spots from chest down to her calves. She previously reported feeling, fidgety with the Adempas and has difficulty sleeping since starting it. IMPRESSION/REPORT/PLAN BP > 95 mmHg - Yes Signs symptoms of hypotension. No Side effects reported. Yes Dose increase advised. Provider contacted, Dr. Green in the absence of Dr. Sanchez for recommendations. Side effects present, consult MD for direction. Weight is now down 6 pounds but still not completely back to baseline. She had restarted torsemide and spironolactone and continued metoprolol. She is no longer taking the lisinopril. She was instructed to hold the Adempas and Dr. Green was contacted for direction. She has tried benadryl in the past and indicates a desire to take that in the interim as well. She had been on lisinopril 10 mg daily. Next call pending recommendations from Dr. Green who is doctor of the day today. Addendum: Dr. Green indicates to discontinue the Adempas and start the process to obtain Opsumit.He understands Opsumit is off label use for CTEPH and she may receive an insurance denial. Emmy indicates a willingness to review the education materials and she will return the Opsumit enrollment form if she agrees to attempt to proceed in obtaining it. She was mailed the forms for signature. She will go see her primary care if the rash does not resolved. If she develops worsening shortness ofbreath or throat tightness she was encouraged to go to the emergency department and be see. She should not drive self. Disposition/Recommendation: self-care is appropriate at this time, patient encouraged to call back with questions Education: patient/caller able to teach back Caller agreeable to plan of care: yes The following references were used: nursing clinical judgement * Telephone Encounter - Lor Serna - 03/07/2025 2:[address] Sanchez, Pt experiencing some symptoms. She had extreme headache/ fatigue She says she needs an appt with you in Apr to check on how new meds are working. She is on your waitlist. Thanks SheelaS documented in this encounter Plan of Treatment Upcoming Encounters Date Type Department Care Team (Latest Contact Info) Description 04/11/2025 11:30 AM CDT Appointment Department of Laboratory Medicine in [address] [phone] Janice Corrigan M.D. [address] [place] [phone] 04/11/2025 1:40 PM CDT Office Visit Department of Family Medicine, [facility], in [address] [phone] Janice Corrigan M.D. [address] [place] [phone] 06/01/2025 11:30 AM CDT Clinical Communication Virtual Review in [place], [place] 200 [place] [phone] 06/07/2025 9:00 AM CDT Appointment Department of Laboratory Medicine and Pathology, [facility] in [place], [place] [address] [place] [phone] Shani Sanchez M.D. [address] [place] [phone] 06/07/2025 9:20 AM CDT Ancillary Procedure Department of Cardiovascular Medicine in [place], [place] [address] [place] [phone] Shani Sanchez M.D. [address] [place] [phone] 06/07/2025 2:00 PM CDT Appointment Department of Cardiac Rehabilitation in [place], [place] [address] [place] [phone] Shani Sanchez M.D. [address] [place] [phone] 06/07/2025 3:00 PM CDT Office Visit Department of Cardiovascular Medicine in [place], [place] [address] [place] [phone] Shani Sanchez M.D. [address] [place] [address] Scheduled Referrals Name Type Priority Associated Diagnoses Orde r Schedule Cardiovascular Disease - Education visit (clinic) Outpatient Referral Routine Chronic Thromboembolic Pulmonary Hypertension (HCC) Expected: 03/08/2025, Expires: 06/08/2026 documented as of this encounter Goals Goal [...] Visit Diagnoses Diagnosis Chronic Thromboembolic Pulmonary Hypertension (HCC)- Primary documented in this encounter Additional Health Concerns Assessment Noted Time PHQ-9 Depression Total Score: 7 01/24/20 25 9:07 AM CDT documented as of this encounter Care Teams Legal Advisor Relationship Specialty Start Date End Date Janice Corrigan M.D. [phone] [place] [phone] PCP - General Family Medicine 12/13/20 [facility] 10/29/23 [facility] Environmental Quality Analyst Optometry 10/29/23 documented as of this encounter
--- OUTSIDE RECORDS SUMMARY | 2025-04-04 16:09 | XMS_ITS | Encounter Summary ---
Author Organization [facility] Address [address] [place] [id number] Care Team Providers Care Steel Fabricating Supervisor Name Role Phone Janice Corrigan M.D. Primary Care Pro vider Reason for Visit * Reason Onset Date Comments Med Question 03/02/2025 Adempas REMS Encounter Details Date Type Department Care Team (Latest Contact Info) Description 03/02/2025 Clinical Communication Department of Cardiovascular Medicine in [place], [place] [address] [place] [address] Shani Sanchez M.D. [address] [place] [phone] Med Question (Adempas REMS) Social History Tobacco Use Types Packs/Day Years Used Date Smoking Tobacco: Never Passive Smoke Exposure: Never Smokeless Tobacco: Never Alcohol Use Standard Drinks/Week Comments Yes 5 (1 standard drink = 0.6 oz pur e alcohol) [facility] Utilities Answer Date Recorded In the past 12 months has e electric, gas, oil, or water [employer] threatened to shut off services in your [...] your living situation today? I have a [facility] place to live 02/13/2025 Education Answer Date Recorded What is the highest level of school you have completed or the highest degree you have received? 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 - 03/02/2025 4:10 PM CDTAddended by: RUFUS DEE on: 03/02/2025 04:10 PM Modules accepted: Orders * Telephone Encounter - Charlotte Deelisa Lucero R.N. - 03/02/2025 3:30 PM CDT HISTORY OF PRESENT ILLNESS Dr. Sanchez has completed the Adempas REMS Patient Enrollment and Consent Form dated 12/30/2024 and it has been submitted for scanning into media. Vital Sign parameters and goals: Systolic blood pressure greater than 95 mmHg NAME OF MEDICATION TO BE TITRATED: Adempas started 02/03/2025 CURRENT REPORTED DOSE: 0.5 mg three times daily DOSE TITRATION SCHEDULED OR INCREASE DOSE BY: increase by 0.5 mg three times daily every 14 days TARGET DOSE: 2.5 mg three times daily or highest tolerated dose. VITAL SIGNS: Blood Pressure: 97/70, 125/75 Heart Rate: 65 bpm Oxygen Saturation: 98 - 99 % on room air 2 L oxygen at night Weight at start of Adempas 208 pounds Current weight 211.5 pounds Weight after restarting spironolactone and torsemide now improved to 211.5 pounds Previous Weight 02/09/2025 217 pounds but had not been taking her diuretics. Symptoms: She continues to report feeling shortness of breath and a bit fidgety with the Adempas dose. IMPRESSION/REPORT/PLAN BP > 95 mmHg - Yes Signs symptoms of hypotension. No Side effects reported. Yes fidgety Dose increase advised. Provider contacted dose increase is advised by Dr. Sanchez Side effects present, consult MD for direction. Weight is now down 5.5 pounds but still not completely back to baseline. She does report ongoing shortness of breath. She had restarted torsemide and spironolactone and continued metoprolol. She is no longer taking the lisinopril. She continues to feel, fidgety. BP running a little low at 97/70 but that is more a random reading vs the norm. She runs closer to the 125/[address] Sanchez was updated and has recommendedwe increase to the 1 mg three times daily dose at this time. Next call due 03/16/2025 - Velvet plans to call her. Disposition/Recommendation: self-care is appropriate at this time, patient encouraged to call back with questions Education: patient/caller able to teach back Caller agreeable to plan of care: yes The following references were used: nursing clinical judgement documented in this encounter Plan of Treatment Upcoming Encounters Date Type Department Care Team (Latest Contact Info) Description 04/11/2025 11:30 AM CDT Appointment Department of Laboratory Medicine in [address] [phone] [place] Janice Gao M.D. [address] [place] [phone] 04/11/2025 1:40 PM CDT Office Visit Department of Family Medicine, [facility], in [address] [phone] [place] Janice Gao M.D. [address] [place] [phone] 06/01/2025 11:30 AM CDT Clinical Communication Virtual Review in [address] [phone] 06/07/2025 9:00 AM CDT Appointment Department of Laboratory Medicine and Pathology, [facility], in [address] [phone] Shani Sanchez M.D. [address] [place] [phone] 06/07/2025 9:20 AM CDT Ancillary Procedure Department of Cardiovascular Medicine in [address] [phone] Shani Sanchez M.D. [address] [place] [phone] 06/07/2025 2:00 PM CDT Appointment Department of Cardiac Rehabilitation in [place], [place] [address] [place] [address] Shani Sanchez M.D. [address] [place] [address] 06/07/2025 3:00 PM CDT Office Visit Department of Cardiovascular Medicine in [place], [place] [address] [place] [address] Shani Sanchez M.D. [address] [place] [address] documented as of this encounter Goals Goal Patient Goal Type Associated Problems Recent Progress Patient-Stated? Author Limit the amount of fluids you drink as directed by your provider Diet On track( 12:53 PM CDT) No Rufus Dee, R.N. Note: Less than 64 ounces daily Eat less salt Diet On track( 12:53 PM CDT) No Rufus Dee, R.N. Note: Sodium intake less than 2000 mg daily Medication adherence Drug Use On track( 12:42 PM CDT) No Rufus Dee, R.N. Note: Order medications to avoid running out Report symptoms and side effects during the titration phase of Adempas documented as of this encounter Visit Diagnoses Not on filedocumented in this encounter Additional Health Concerns Assessment Noted Time PHQ-9 Depression Total Score: 7 01/24/20 25 9:07 AM CDT documented as of this encounter Care Teams Steel Fabricating Supervisor Relationship Specialty Start Date End Date Janice Corrigan M.D. [id number] [place] [phone] PCP - General Family Medicine 12/13/20 [facility] 10/29/23 [facility] Process Specialist Optometry 10/29/23 documented as of this encounter
--- OUTSIDE RECORDS SUMMARY | 2025-04-04 16:10 | XMS_ITS | Encounter Summary ---
Author Organization [facility] Address [address] [place] [address] Care Team Providers Care Twister Operator Name Role Phone Janice Corrigan M.D. Primary Care Pro vider Reason for Visit * Reason Onset Date Comments Echo Move Up Request 04/04/2025 Encounter Details Date Type Department Care Team (Latest Contact Info) Description 04/04/2025 Clinical Communication Department of Cardiovascular Medicine in [place], [place] [address] [place] [address] Supervisor Phosphatic FertilizerJosé M.D. Echo Move Up Request Social History Tobacco Use Types Packs/Day Years Used Date Smoking Tobacco: Never Passive Smoke Exposure: Never Smokeless Tobacco: Never Alcohol Use Standard Drinks/Week Comments Yes 5 (1 standard drink = 0.6 oz pur e alcohol) [facility] Utilities Answer Date Recorded In the past 12 months has [employer], gas, oil, or water [employer] threatened to shut off services in your [...] your living situation today? I have a [facility] place to live 02/13/2025 Education Answer Date Recorded What is the highest level of school you have completed or the highest degree you have received? 12th grade 02/07/2020 Comments No Sex and Gender Information Value Date Recorded Sex Assigned at Female 06/18/2021 8:10 PM CDT Legal Sex Female 7:46 AM BOTTLER Gender Identity Female 01/29/2018 9:08 AM CDT Sexual Orientation Straight 01/29/2018 9: 08 AM CDT Occupation Industry Job Start Date Job End Date Retired Not on file Not on file Not on file documented as of this encounter Miscellaneous Notes * Telephone Encounter - CtGabe greenfieldsay R - 04/04/2025 8:17 AM CDT ECHO MOVE UP REQUEST If there is any additional information please add it to the bottom. (I.E. provider request, nursingrequest, etc.) Appt Type: EST Thursday: Date: 06/07 Anytime When does the provider see (date and time)?: 06/07 at 3 Are there times that do not work for pt?: No Is testing flexible to accommodate the echo?: Yes Pool for replies: P RST CVD HF PH SCHEDULING documented in this encounter Plan of Treatment Upcoming Encounters Date Type Department Care Team (Latest Contact Info) Description 04/11/2025 11:30 AM CDT Appointment Department of Laboratory Medicine in [address] [phone] Janice Corrigan M.D. [address] [place] [phone] 04/11/2025 1:40 PM CDT Office Visit Department of Family Medicine, [facility], in [address] [phone] Janice Corrigan M.D. [address] [place] [phone] 06/01/2025 11:30 AM CDT Clinical Communication Virtual Review in [place], [place] [address] [place] [address] 06/07/2025 9:00 AM CDT Appointment Department of Laboratory Medicine and Pathology, [facility], in [address] [address] Shani Sanchez M.D. [address] [place] [phone] 06/07/2025 9:20 AM CDT Ancillary Procedure Department of Cardiovascular Medicine in [place], [place] [address] [place] [phone] Shani Sanchez M.D. [address] [place] [phone] 06/07/2025 2:00 PM CDT Appointment Department of Cardiac Rehabilitation in [place], [place] [address] [place] [address] Shani Sanchez M.D. [address] [place] [address] 06/07/2025 3:00 PM CDT Office Visit Department of Cardiovascular Medicine in [place], [place] [address] [place] [address] Shani Sanchez M.D. [address] [place] [address] documented as of this encounter Goals Goal [...] documented as of this encounter Care Teams Twister Operator Relationship Specialty Start Date End Date Janice Corrigan M.D. [address] [phone] PCP - General Family Medicine 12/13/20 [facility] 10/29/23 [facility] Poultryman Optometry 10/29/23 documented as of this encounter
--- OUTSIDE RECORDS SUMMARY | 2025-04-04 16:10 | XMS_ITS | Encounter Summary ---
Author Organization [facility] Address [address] [place] [address] Care Team Providers Care Breaker Boss Name Role Phone Janice Corrigan M.D. Primary Care Pro vider Reason for Referral * Medication Prior Authorization - Closed Specialty Diagnoses / Procedures Referred By Elie t Referred To Contact Pola Green M.D. [address] [place] [phone] Phone: tel: fax: Referral ID Status Reason Start Date Expiration Date Visits Re quested Visits Authorized [id number] Closed 1 1 Reason for Visit * Reason Comments Care Coordination Encounter Details Date Type Department Care Team (Latest Contact Info) Description 03/22/2025 Patient Outreach Department of Cardiovascular Medicine in [place], [place] [address] [place] [phone] Irma Dee R.N. [address] [place] [phone] Care Coordination Social History Tobacco Use Types Packs/Day Years Used Date Smoking Tobacco: Never Passive Smoke Exposure: Never Smokeless Tobacco: Never Alcohol Use Standard Drinks/Week Comments Yes 5 (1 standard drink = 0.6 oz pur e alcohol) [facility] Utilities Answer Date Recorded In the past [...] your living situation today? I have a [facility] place to live 02/13/2025 Education Answer Date Recorded What is the highest level of school you have completed or the highest degree you have received? 12th grade 02/07/2020 Comments No Sex and Gender Information Value Date Recorded Sex Assigned at Female 06/18/2021 8:10 PM CDT Legal Sex Female 7:46 AM GRINDER [employer]ATCH [employer]S Gender Identity Female 01/29/2018 9:08 AM CDT Sexual Orientation Straight 01/29/2018 9: 08 AM CDT Occupation Industry Job Start Date Job End Date Retired Not on file Not on file Not on file documented as of this encounter Progress Notes * Irma Dee R.N. - 03/22/2025 11:38 AM CDT SUBJECTIVE CHIEF COMPLAINT / REASON FOR CALL Care Coordination ASSESSMENT She reports the rash is improved but not completely gone. The Adempas has been discontinued. She would like to wait to discuss Opsumit with Dr. Sanchez at her return visit. She does not have a return with her until June. She does report some irregular heart beat at times that are increasing in frequency. PLAN She was encouraged to see her primary care provider as soon as possible for further assessment of her rash and increasing irregular heart beats. She is aware if she worsens to seek emergency room care. She is concerned she cannot get in to see Dr. Sanchez until June when she reports, I was told to be seen every three months. Dr. Sanchez was contacted to see if she could see her earlier than June. Her response is pending. Disposition/Recommendation: patient to schedule appointment and will call. Information/Education: patient/caller able to teach back. Caller agreeable to plan of care: yes. The following references were used: nursing clinical judgement. documented in this encounter Plan of Treatment Upcoming Encounters Date Type Department Care Team (Latest Contact Info) Description 04/11/2025 11:30 AM CDT Appointment Department of Laboratory Medicine in [address] [phone] Janice Corrigan M.D. [address] [place] [phone] 04/11/2025 1:40 PM CDT Office Visit Department of Family Medicine, [facility], in [address] [phone] Janice Corrigan M.D. [address] [place] [phone] 06/01/2025 11:30 AM CDT Clinical Communication Virtual Review in [place], [place] 200 [place] [address] 06/07/2025 9:00 AM CDT Appointment Department of Laboratory Medicine and Pathology, [facility] in [place], [place] [address] [place] [phone] Shani Sanchez M.D. [address] [place] [phone] 06/07/2025 9:20 AM CDT Ancillary Procedure Department of Cardiovascular Medicine in [address] [address] Shani Sanchez M.D. [address] [place] [phone] 06/07/2025 2:00 PM CDT Appointment Department of Cardiac Rehabilitation in [address] [phone] Shani Sanchez M.D. [address] [place] [phone] 06/07/2025 3:00 PM CDT Office Visit Department of Cardiovascular Medicine in [address] [phone] Shani Sanchez M.D. [address] [place] [phone] documented as of this encounter Goals Goal Patient Goal Type Associated Problems Recent Progress Patient-Stated? Author Limit the amount of fluids you drink as directed by your provider Diet On track( 025 12:53 PM CDT) Irma Peoples R.N. Note: Less than 64 ounces daily Eat less salt Diet On track( 12:53 PM CDT) No Irma Dee, R.N. Note: Sodium intake less than 2000 mg daily Medication adherence Drug Use On track( 12:42 PM CDT) No Irma Dee R.N. Note: Order medications to avoid running out Report symptoms and side effects during the titration phase of Adempas documented as of this encounter Visit Diagnoses Not on filedocumented in this encounter Additional Health Concerns Assessment Noted Time PHQ-9 Depression Total Score: 7 01/24/20 25 9:07 AM CDT documented as of this encounter Care Teams Breaker Boss Relationship Specialty Start Date End Date Janice Corrigan M.D. [address] [place] [phone] PCP - General Family Medicine 12/13/20 [facility] 10/29/23 [facility] Commercial Energy Auditor Optometry 10/29/23 documented as of this encounter
--- OUTSIDE RECORDS SUMMARY | 2025-04-04 16:10 | XMS_ITS | Encounter Summary ---
Author Organization [facility] Address [address] [place] [address] Care Team Providers Care Nursing Resident Name Role Phone Janice Corrigan M.D. Primary Care Pro vider Reason for Referral * Cardiovascular-Diagnostic (Routine) - Authorized Specialty Diagnoses / Procedures Referred By Elie t Referred To Contact Diagnoses Chronic Thromboembolic Pulmonary Hypertension (HCC) Hypertension Pulmonary (HCC) Procedures Echo Transthoracic (TTE) Shani Sanchez M.D. [address] [place] [address] Phone: tel: fax: [facility] Referral ID Status Reason Start Date Expiration Date V isits Requested Visits Authorized [id number] Authorized 04/03/2025 07/04/2026 1 1 * Cardiovascular-Diagnostic (Routine) - Authorized Specialty Diagnoses / Procedures Referred By Elie clayton Referred To Contact Diagnoses Chronic Thromboembolic Pulmonary Hypertension (HCC) Hypertension Pulmonary (HCC) Procedures Six Minute Walk Shani Sanchez M.D. [address] [place] [address] Phone: tel: fax: [facility] Referral ID Status Reason Start Date Expiration Date V isits Requested Visits Authorized [id number] Authorized 04/03/2025 07/04/2026 1 1 * Outpatient (Routine) - Authorized Specialty Diagnoses / Procedures Referred By Contac t Referred To Contact Diagnoses Chronic Thromboembolic Pulmonary Hypertension (HCC) Hypertension Pulmonary (HCC) Procedures ECG 12 Lead KS EKG 12 LEAD W I&R Shani Sanchez M.D. [address] [place] [address] Phone: tel: fax: [facility] Referral ID Status Reason Start Date Expiration Date V isits Requested Visits Authorized [id number] Authorized 04/03/2025 07/04/2026 1 1 Encounter Details Date Type Department Care Team (Latest Contact Info) Description 03/29/2025 Clinical Communication Department of Cardiovascular Medicine in [place], [place] [address] [place] [address] Shani Sanchez M.D. [address] [place] [phone] Social History Tobacco Use Types Packs/Day Years Used Date Smoking Tobacco: Never Passive Smoke Exposure: Never Smokeless Tobacco: Never Alcohol Use Standard Drinks/Week Comments Yes 5 (1 standard drink = 0.6 oz pur e alcohol) [facility] Utilities Answer Date Recorded In the past 12 months has e [employer], gas, oil, or water [email or web address] threatened to shut off services in your [...] your living situation today? I have a [facility] place to live 02/13/2025 Education Answer Date Recorded What is the highest level of school you have completed or the highest degree you have received? 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 [address] [place] [phone] 04/11/2025 1:40 PM CDT Office Visit Department of Family Medicine, [facility], in [address] [phone] Janice Corrigan M.D. [address] [place] [phone] 06/01/2025 11:30 AM CDT Clinical Communication Virtual Review in [place], [place] [address] [place] [phone] 06/07/2025 9:00 AM CDT Appointment Department of Laboratory Medicine and Pathology, [facility], in [place], [place] [address] [place] [phone] Shani Sanchez M.D. [address] [place] [phone] 06/07/2025 9:20 AM CDT Ancillary Procedure Department of Cardiovascular Medicine in [address] [phone] Shani Sanchez M.D. [address] [place] [phone] 06/07/2025 2:00 PM CDT Appointment Department of Cardiac Rehabilitation in [address] [phone] Shani Sanchez M.D. [address] [place] [phone] 06/07/2025 3:00 PM CDT Office Visit Department of Cardiovascular Medicine in [address] [phone] Shani Sanchez M.D. [address] [place] [phone] Scheduled Orders Name Type Priority Associated Diagnoses Orde r Schedule CBC with Differential, Blood Lab Routine Chronic Thromboembolic Pulmonary Hypertension (HCC) Hypertension Pulmonary (HCC) Expected: 06/07/2025, Expires: 09/05/2025 Sodium Lab Routine Chronic Thromboembolic Pulmonary Hypertension (HCC) Hypertension Pulmonary (HCC) Expected: 06/07/2025, Expires: 09/05/2025 Potassium Lab Routine Chronic Thromboembolic Pulmonary Hypertension (HCC) Hypertension Pulmonary (HCC) Expected: 06/07/2025, Expires: 09/05/2025 Creatinine with Estimated GFR Lab Routine Chronic Thromboembolic Pulmonary Hypertension (HCC) Hypertension Pulmonary (HCC) Expected: 06/07/2025, Expires: 09/05/2025 Calcium, Total Lab Routine Chronic Thromboembolic Pulmonary Hypertension (HCC) Hypertension Pulmonary (HCC) Expected: 06/07/2025, Expires: 09/05/2025 Protein, Total Lab Routine Chronic Thromboembolic Pulmonary Hypertension (HCC) Hypertension Pulmonary (HCC) Expected: 06/07/2025, Expires: 09/05/2025 Albumin Lab Routine Chronic Thromboembolic Pulmonary Hypertension (HCC) Hypertension Pulmonary (HCC) Expected: 06/07/2025, Expires: 09/05/2025 AST (Aspartate Aminotransferase) Lab Routine Chronic Thromboembolic Pulmonary Hypertension (HCC) Hypertension Pulmonary (HCC) Expected: 06/07/2025, Expires: 09/05/2025 ALT (Alanine Aminotransferase) Lab Routine Chronic Thromboembolic Pulmonary Hypertension (HCC) Hypertension Pulmonary (HCC) Expected: 06/07/2025, Expires: 09/05/2025 Alkaline Phosphatase Lab Routine Chronic Thromboembolic Pulmonary Hypertension (HCC) Hypertension Pulmonary (HCC) Expected: 06/07/2025, Expires: 09/05/2025 Bilirubin, Direct Lab Routine Chronic Thromboembolic Pulmonary Hypertension (HCC) Hypertension Pulmonary (HCC) Expected: 06/07/2025, Expires: 09/05/2025 Bilirubin, Total Lab Routine Chronic Thromboembolic Pulmonary Hypertension (HCC) Hypertension Pulmonary (HCC) Expected: 06/07/2025, Expires: 09/05/2025 BUN (Blood Urea Nitrogen) Lab Routine Chronic Thromboembolic Pulmonary Hypertension (HCC) Hypertension Pulmonary (HCC) Expected: 06/07/2025, Expires: 09/05/2025 Thyroid Function [place] Lab Routine Chronic Thromboembolic Pulmonary Hypertension (HCC) Hypertension Pulmonary (HCC) Expected: 06/07/2025, Expires: 09/05/2025 Glucose, Fasting Lab Routine Chronic Thromboembolic Pulmonary Hypertension (HCC) Hypertension Pulmonary (HCC) Expected: 06/07/2025, Expires: 09/05/2025 ECG 12 Lead ECG Routine Chronic Thromboembolic Pulmonary Hypertension (HCC) Hypertension Pulmonary (HCC) Expected: 06/07/2025, Expires: 09/05/2025 Six Minute Walk Cardiac Services Routine Chronic Thromboembolic Pulmonary Hypertension (HCC) Hypertension Pulmonary (HCC) Expected: 06/07/2025, Expires: 09/05/2025 NT-Pro B-Type Natriuretic Peptide (BNP) Lab Routine Chronic Thromboembolic Pulmonary Hypertension (HCC) Hypertension Pulmonary (HCC) Expected: 06/07/2025, Expires: 09/05/2025 Uric Acid Lab Routine Chronic Thromboembolic Pulmonary Hypertension (HCC) Hypertension Pulmonary (HCC) Expected: 06/07/2025, Expires: 09/05/2025 Echo Transthoracic (TTE) Echocardiography Routine Chronic Thromboembolic Pulmonary Hypertension (HCC) Hypertension Pulmonary (HCC) Expected: 06/07/2025, Expires: 09/05/2025 documented as of this encounter Goals Goal [...] Diagnosis Chronic Thromboembolic Pulmonary Hypertension (HCC)- Primary Hypertension Pulmonary (HCC) documented in this encounter Additional Health Concerns Assessment Noted Time PHQ-9 Depression Total Score: 7 01/24/20 25 9:07 AM CDT documented as of this encounter Care Teams Nursing Resident Relationship Specialty Start Date End Date Janice Corrigan M.D. [id number] [phone] PCP - General Family Medicine 12/13/20 [facility] 10/29/23 [facility] Examination [facility] 10/29/23 documented as of this encounter
--- OUTSIDE RECORDS SUMMARY | 2025-04-04 16:10 | XMS_ITS | Encounter Summary ---
Author Organization [facility] Address [address] [place] [address] Care Team Providers Care Grocery Department Manager Name Role Phone Janice Corrigan M.D. Primary Care Pro vider Reason for Visit * Reason Onset Date Comments Rx Denial 03/24/2025 Opsumit 10 mg ta blet Encounter Details Date Type Department Care Team (Latest Contact Info) Description 03/24/2025 Clinical Communication Division of Pulmonary Medicine in [place], [place] [address] [place] [phone] Pola Green M.D. [address] [place] [phone] Rx Denial (Opsumit 10 mg tablet) Social History Tobacco Use Types Packs/Day Years Used Date Smoking Tobacco: Never Passive Smoke Exposure: Never Smokeless Tobacco: Never Alcohol Use Standard Drinks/Week Comments Yes 5 (1 standard drink = 0.6 oz pur e alcohol) [facility] Utilities Answer Date Recorded In the past 12 months has e [employer], gas, oil, or water [employer] threatened to shut off services in your [...] your living situation today? I have a [facility] place to live 02/13/2025 Education Answer Date Recorded What is the highest level of school you have completed or the highest degree you have received? 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 [address] [place] [phone] 04/11/2025 1:40 PM CDT Office Visit Department of Family Medicine, [facility], in [address] [phone] Janice Corrigan M.D. [address] [place] [phone] 06/01/2025 11:30 AM CDT Clinical Communication Virtual Review in [place], [place] [address] [place] [phone] 06/07/2025 9:00 AM CDT Appointment Department of Laboratory Medicine and Pathology, [facility], in [place], [place] [address] [place] [phone] Shani Sanchez M.D. [address] [place] [phone] 06/07/2025 9:20 AM CDT Ancillary Procedure Department of Cardiovascular Medicine in [place], [place] [address] [place] [phone] Shani Sanchez M.D. [address] [place] [phone] 06/07/2025 2:00 PM CDT Appointment Department of Cardiac Rehabilitation in [place], [place] [address] [place] [phone] Shani Sanchez M.D. [address] [place] [phone] 06/07/2025 3:00 PM CDT Office Visit Department of Cardiovascular Medicine in [place], [place] [address] [place] [phone] Shani Sanchez M.D. 200 [place] [phone] documented as of this encounter Goals Goal [...] documented as of this encounter Care Teams Grocery Department Manager Relationship Specialty Start Date End Date Janice Corrigan M.D. [address] [phone] PCP - General Family Medicine 12/13/20 [facility] 10/29/23 [facility] 10/29/23 documented as of this encounter
--- OUTSIDE RECORDS SUMMARY | 2025-04-04 16:10 | XMS_ITS | Encounter Summary ---
Author Organization [facility] Address [address] [place] [address] Care Team Providers Care It Security Consulting Director Name Role Phone Janice Corrigan M.D. Primary Care Pro vider Reason for Visit * Reason Comments Care Coordination Encounter Details Date Type Department Care Team (Latest Contact Info) Description 02/21/2025 Patient Outreach Department of Cardiovascular Medicine in [place], [place] [address] [place] [phone] Irma Dee R.N. [address] [place] [phone] Care Coordination Social History Tobacco Use Types Packs/Day Years Used Date Smoking Tobacco: Never Passive Smoke Exposure: Never Smokeless Tobacco: Never Alcohol Use Standard Drinks/Week Comments Yes 5 (1 standard drink = 0.6 oz pur e alcohol) [facility] Utilities Answer Date Recorded In [...] your living situation today? I have a [facility] place to live 02/13/2025 Education Answer Date Recorded What is the highest level of school you have completed or the highest degree you have received? 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 - 02/21/2025 11:34 AM CDT HISTORY OF PRESENT ILLNESS Dr. [...] highest tolerated dose. VITAL SIGNS: Blood Pressure: 104/75 120/70 139/89 Heart Rate: 65 bpm Oxygen Saturation: 98 - 99 % on room air 2 L oxygen at night Weight at start of Adempas 208 pounds Weight 02/09/2025 217 pounds Current weight 212 pounds Weight after restarting spironolactone and torsemide is 212 pounds. Which is down 5 pounds since 02/09/2025 Symptoms: She continues to report feeling shortness of breath and a bit fidgety with the Adempas dose. IMPRESSION/REPORT/PLAN BP > 95 mmHg - Yes Signs symptoms of hypotension. No Side effects reported. yes Dose increase advised. No currently on hold per Dr. Rutherford Side effects present, consult MD for direction. Weight is now down 5 pounds but still not completely back to baseline. She does report ongoing shortness of breath. She had restarted torsemide and spironolactone and continued metoprolol. She is no longer taking the lisinopril. Velvet Cast indicates she will follow up with her again on 03/02/2025 given weight is not back to normal and she still feels, fidgety. Dr. Sanhcez was updated. Disposition/Recommendation: self-care is appropriate at this time, patient encouraged to call back with questions Education: patient/caller able to teach back Caller agreeable to plan of care: yes The following references were used: nursing clinical judgement documented in this encounter Plan of Treatment Upcoming Encounters Date Type Department Care Team (Latest Contact Info) Description 04/11/2025 11:30 AM CDT Appointment Department of Laboratory Medicine in [address] [phone] Janice Corrigan M.D. [address] [place] [phone] 04/11/2025 1:40 PM CDT Office Visit Department of Family Medicine, [facility], in [address] [phone] Janice Corrigan M.D. [address] [place] [phone] 06/01/2025 11:30 AM CDT Clinical Communication Virtual Review in [place], [place] 200 [place] [phone] 06/07/2025 9:00 AM CDT Appointment Department of Laboratory Medicine and Pathology, [facility], in [place], [place] [address] [place] [phone] Shani Sanchez M.D. [address] [place] [phone] 06/07/2025 9:20 AM CDT Ancillary Procedure Department of Cardiovascular Medicine in [place], [place] [address] [place] [phone] Shani Sanchez M.D. [address] [place] [phone] 06/07/2025 2:00 PM CDT Appointment Department of Cardiac Rehabilitation in [place], [place] [address] [place] [phone] Shani Sanchez M.D. [address] [place] [phone] 06/07/2025 3:00 PM CDT Office Visit Department of Cardiovascular Medicine in [place], [place] [address] [place] [phone] Shani Sanchez M.D. [address] [place] [phone] documented as of this encounter Goals Goal [...] documented as of this encounter Care Teams It Security Consulting Director Relationship Specialty Start Date End Date Janice Corrigan M.D. [address] [place] [phone] PCP - General Family Medicine 12/13/20 [facility] 10/29/23 [facility] Fitness Management Director Optometry 10/29/23 documented as of this encounter
[2025-04-04 16:22] LABS: Hematocrit 37.6 % (33.0-51.0); Hemoglobin* 12.3 gm/dL (12.0-16.0); Immature Granulocytes Abs Auto 0.05 K/uL (0.00-0.30); Immature Granulocytes Pct Auto 0.9 %; Lymphocytes Absolute Auto 1.43 K/uL (0.90-2.90); Mean Corpuscular HGB Conc 33 gm/dL (32-36); Mean Corpuscular Hemoglobin 30 pg (26-34); Mean Corpuscular Volume 91 fL (80-100); RDW Coefficient of Variation % 13.9 % (11.5-15.5); Red Blood Count 4.13 m/uL (4.00-5.20); White Blood Count* 5.81 K/uL (4.50-11.00)
[2025-04-04 16:23] LABS: Troponin, Point-of-Care* 0.01 ng/ml (0.01-0.04)
[2025-04-04 16:24] LABS: Slide Review Reflex No
[2025-04-04 16:49] LABS: Chloride* 102 mmol/L (96-114); Potassium* 3.9 mmol/L (3.6-5.1); Sodium* 138 mmol/L (135-149)
[2025-04-04 16:52] LABS: Anion Gap 7 mEq/L (7-15); Blood Urea Nitrogen* 21 mg/dL (7-30); Calcium* 9.4 mg/dL (8.4-10.6); Carbon Dioxide* 29 mmol/L (20-32); Creatinine* 0.9 mg/dL (0.5-1.5); Est. Creatinine Clearance* 38.75; Estimated Glomerular Filt Rate 65 ml/min; Glucose* 106 mg/dL (60-115)
[2025-04-04 17:06] LABS: NT Pro B Type NatriureticPept* 1900 pg/mL (See Note)
[2025-04-04] MEDS: MAGNESIUM HYDROXIDE 30 ML ORAL.SUSP PO (17:09)
[2025-04-04 17:11] VITALS: BP 146/88; PULSE 71; RESP 18; TEMP 36.4; O2SAT 96
== END 2025-04-04 17:27 | disposition home or self-care (01) ==
PROVIDERS: Emergency Provider Emergency Medicine Emergency Medical Services; PCP General Practice
DX: I50.9 Heart failure, unspecified (principal)
CPT/HCPCS: 36415; 71046; 80048; 83735; 83880; 84484; 85025; 99284; A9270